=== PATIENT | male | born 1945 | race Caucasian/White ===

== ENCOUNTER 2024-11-05 10:26 | Outpatient (AMB) | payer MEDICARE, SELFPAY ==
--- NOTE | 2024-11-05 10:34 | HO.SPINEOV ---
Vital Signs 11/05/24 10:42 Height 5 ft 6 in Weight 193 lb BMI 31.1 Intake Visit Reasons: spinal stenosis Intake Note: Mr. Chowdhury is here today c/o back pain MRI done at [place]. Research Professor Required: No Allergies No Known Allergies Allergy (Verified 11/05/24 10:42) Physical Exam Vital Signs: BMI result Body Mass Index 31.1 Assessment & Plan Assessment & Plan (1) Spinal stenosis, lumbar region with neurogenic claudication: Code(s): M48.062 - Spinal stenosis, lumbar region with neurogenic claudication Category: Medical Plan Dear Dr. Cruz, Thank you for referring Alf to our office today. He is a pleasant 78-year-old male who comes in today with a chief complaint of pain with ambulation. He recently underwent L5-S1 interlaminar injections with our colleagues at [facility] and obtained excellent relief of his pain. Unfortunately with the injection wore off he returned to his pre-injection level of discomfort. Alf reports that he has been having pains with ambulation for about 8 years. He feels this has worsened over the course of the last 1-2 years. He reports little to no back pain, but states that when he walks anymore than about a block he starts getting severe cramping/shooting pain from his posterior buttocks into the posterior lateral thighs. In addition to this he reports some hypoesthesia over the right lateral thigh. He reports that when ambulating outside of the home he typically needs to utilize his cane for support, or holds onto a shopping cart to get around the grocery store / department store. He has attempted zzdo-fuy-zaeqhwb medications in prescription medications to help alleviate this pain as documented in his incoming referral. These have been only modestly helpful. He has attempted skin care therapist in an effort to help mitigate his pain, without significant relief. PMH: AFib on Eliquis, high blood pressure, type 2 diabetes (last A1C 8.4), GERD, BPH, history of bilateral hip replacement, history of carpal tunnel syndrome, history multiple MOHS procedures done on his face by [facility]. Social hx: The patient does not smoke, reports no substance use. Medications: Diltiazem, lisinopril, chlorthalidone, Eliquis, glipizide, metformin, Toujeo, doxazosin, finasteride, atorvastatin, omeprazole, fish oil, cinnamon. Allergies: No known drug allergies. Physical exam: The patient has 5/5 strength in his upper and lower extremities. He ambulates well and rises from a seated position without assistance. He has some sensational deficits over the right lateral thigh. His sensation is otherwise intact. He has 3+ hyperreflexia in his bilateral patella. His reflexes are 2+ normal elsewhere. His gait is non spastic and nonantalgic. (-) bilateral straight leg raise, (-) clonus, (-) Jackson's. Imaging review: MRI of the lumbar spine completed at [place] ([facility], 1944) shows diffuse spondylosis of the lumbar spine, with severe central canal and bilateral foraminal stenosis at L3-4, L4-5 (worse on the right at both levels). There is a synovial cyst at L4-5 compressing on the thecal sac and the first 1/4th of the foramen. There is severe right-sided foraminal stenosis at L5-S1. Impression: Alf is a pleasant 78-year-old male who comes in today with a chief complaint of 8 years of pain with ambulation. He primarily reports leg pain with ambulation and denies much low back pain. He has undergone injections with our colleagues in [facility] with excellent relief of his pain. I believe he likely had some secondary relief at L3-4, L4-5 from the interlaminar injection at L5-S1. The L5-S1 space does match his dermatomal distribution of pain, and there is severe right-sided foraminal stenosis at this level. It sounds like the patient is suffering from classic spinal stenosis with neurogenic claudication. We discussed the possibility of surgery as an avenue to treat his problem. I believe he would likely need lumbar decompression from L3-S1. Arguably the L5-S1 segment could be avoided but the nerve may remain symptomatic if the foraminal stenosis is not addressed. Unfortunately, Alf is not currently a candidate for this surgery with his A1c at 8.4. He will need to have his A1c rechecked at his next primary care appointment. We need this under an 8 to proceed with surgery. I will follow up with him in clinic after he has his subsequent A1c completed. Thank you for allowing us to care for your patient. The total time spent with this visit with this patient was 45 minutes reviewing history, physical exam, MRI imaging review, and implementation of treatment plan or further diagnostic testing Augustin Torres MD,PhD [facility] Coding Level of Care Code New Pt Level 4 (57521) Diagnoses Spinal stenosis, lumbar region with neurogenic claudication M48.062
[2024-11-05 10:42] VITALS: BMI 31.1
--- OUTSIDE RECORDS SUMMARY | 2024-11-05 12:14 | XMS_ITS | Encounter Summary ---
Author Organization [facility], Address [address] [place] [address] Phone Care Team Providers Care Senior Manufacturing Supervisor Name Role Phone Rob Elder MD Primary Care Provider [phone] Encounter Details Date Type Department Care Team (Late st Contact Info) Description 02/09/2022 Office Communication [facility], [address] [place] [phone] Willian Araya MD [address] [place] [phone] Social History Tobacco Use Types Packs/Day Years Used Date Smoking Tobacco: Former Cigarettes Alcohol Use Standard Drinks/Week Comments Not Currently 0 (1 standard drink = 0.6 oz pur e alcohol) Sex and Gender Information Value Date Recorded Sex Assigned at Not on file Legal Sex Male 4:00 PM EST Gender Identity Not on file Sexual Orientation Not on file documented as of this encounter Plan of Treatment Not on file documented as of this encounter Visit Diagnoses Not on filedocumented in this encounter Care Teams Senior Manufacturing Supervisor Relationship Specialty Start Date End Date Rob Elder MD [address] [place] PCP - General Internal Medicine 07/28/21 documented as of this encounter
--- OUTSIDE RECORDS SUMMARY | 2024-11-05 12:14 | XMS_ITS | Clinical Summary ---
Author Organization [facility], Address [address] [facility] [address] [place] [address] Phone Care Team Providers Care Cook Mess Name Role Phone Rob Elder MD Primary Care Provider [phone] Allergies Active Allergy Reactions Criticality Noted Date Comments Amlodipine Swelling 10/06/2021 Medications atorvastatin (LIPITOR) 40 MG tablet Take 40 mg by mouth 1 (one) time each day 08/29/2021 Active dilTIAZem CD (CARDIZEM CD) 240 MG 24 hr capsule Take 240 mg by mouth 1 (one) time each day 10/04/2021 Active chlorthalidone 25 MG tablet Take 25 mg by mouth 1 (one) time each day 07/22/2021 Active doxazosin (CARDURA) 4 MG tablet Take 4 mg by mouth 1 (one) time each day 08/11/2021 Active finasteride (PROSCAR) 5 MG tablet Take 5 mg by mouth 1 (one) time each day 08/11/2021 Active glipiZIDE (GLUCOTROL) 5 MG tablet Take 5 mg by mouth in the morning and 5 mg in the evening. 07/21/2021 Active Tresiba FlexTouch 100 UNIT/ML injection Inject 35 Units under the skin 1 (one) time each day 09/18/2021 Active lisinopril 40 MG tablet Take 40 mg by mouth 1 (one) time each day 09/17/2021 Active metFORMIN XR (GLUCOPHAGE-XR) 500 MG 24 hr tablet Take 2,000 mg by mouth 1 (one) time each day 08/17/2021 Active metoprolol tartrate 25 MG tablet TAKE 1 TABLET BY MOUTH TWICE DAILY HOLD FOR WHEN HEART RATE IS LESS THAN 60 OR WHEN FEELING DIZZY 08/29/2021 Active omeprazole (PriLOSEC) [address] capsule Take 20 mg by mouth 1 (one) time each day 08/29/2021 Active cinnamon 500 MG capsule Take 500 mg by mouth 1 (one) time each day Active apixaban (Eliquis) 5 MG tablet Take 5 mg by mouth in the morning and 5 mg in the evening. Active [place]-3 Fatty Acids (Fish Oil) 1000 MG capsule delayed-release Take by mouth Active Dulaglutide (Trulicity) 0.75 MG/0.5ML solution pen-injector Inject under the skin Active Active Problems Problem Noted Date Diagnosed Date Stage 3a chronic kidney disease 05/25/2022 Chronic kidney disease 10/06/2021 Type 2 diabetes mellitus wit h other diabetic kidney complication 10/06/2021 Essential (primary) hypertension 10/06/2021 Renal disorder due to type 2 diabetes mellitus 0 10/06/2021 Microalbuminuria due to type 2 diabetes mellitus 10/06/2021 Immunizations Name Administration Dates Next Due Influenza (IM) Preservative Free 021,04/02/2019,04/17/2018,05/06/2017 ,04/17/2015 Pfizer SARS-COV-2 05/22/2021 Social History Tobacco Use Types Packs/Day Years Used Date Smoking Tobacco: Former Cigarettes Alcohol Use Standard Drinks/Week Comments Not Currently 0 (1 standard drink = 0.6 oz pur e alcohol) Sex and Gender Information Value Date Recorded Sex Assigned at Not on file Legal Sex Male 4:00 PM EST Gender Identity Not on file Sexual Orientation Not on file Plan of Treatment Health Maintenance Due Date Last Done Comments Pneumococcal Vaccine: 65+ Years (1 of 2 - PCV) 1951 Diabetes: Ophthalmology Exam 10/06/2021 Diabetes: Pedal Pulse Checked 10/06/2021 Diabetes: Sensory Foot Exam 10/06/2021 Diabetes: Visual Foot Exam 10/06/2021 Diabetes: Hemoglobin A1C 03/02/2023 023, 07/13/2022, 03/16/2022 Influenza Vaccine (Season Ended) 2025 04/22/2021, 04/02/2019, 04/17/2018, Additional history exists Hepatitis B Vaccine Aged Out No longe r eligible based on patient's age to complete this topic Procedures Procedure Name Priority Date/Time Associated Diagnosis Comments HEMOGLOBIN A1C Routine 11/30/2022 8:14 AM EDT Type 2 diabetes mellitus with other diabetic kidney complication (HCC) from Last 3 Months or Most Recently Relevant to Health Maintenance Results * (ABNORMAL) Hemoglobin A1c (11/30/2022 8:14 AM EDT) Hemoglobin A1C 7.4(H) (4.0-5.6) % [facility] Comment: MONITORING: In known diabetic patients, hemoglobin A1c targets should be discussed with health care provider. DIAGNOSTIC USE: ??The [place] Diabetes Association (ADA) and the World Health Organization (WHO) recommend the use of HbA1c to diagnose diabetes using a threshold of 6.5%. Patients who have an HbA1c between 5.7% and 6.4% are considered at increased risk for developing diabetes in the future. CAUTION: Falsely low HbA1c results may be observed in patients with hemolytic anemia, homozygous forms of abnormal hemoglobin (e.g. SS, CC, SC), , recent blood loss or hemoglobin F greater than 7%. Fructosamine may be used as an alternate test in these cases. REFERENCE: ADA: Standards of Medical Care in Diabetes 2020, The Journal of Clinical and Applied Research and Education Volume 43, Supplement 1 Testing performed or reported by [facility], a Service of [facility], [address] [place] [address] Fahad Alejandre MD, Senior Portfolio Analyst [facility]# [id number] Blood (Blood, Venous) 11/30/2022 8:14 AM EDT 11/30/2022 9:16 AM EDT us Matthew [facility] LAB BLOOD ORDERABLES Final Re sult [facility] from Last 3 Months or Most Recently Relevant to Health Maintenance Insurance [facility] Care Teams Cook Mess Relationship Specialty Start Date End Date Rob Elder MD [address] [place] PCP - General Internal Medicine 07/28/21
--- OUTSIDE RECORDS SUMMARY | 2024-11-05 12:14 | XMS_ITS | Encounter Summary ---
Author Organization [facility], Address [address] [place] [address] Phone Care Team Providers Care Health Information Management Director Name Role Phone Rob Elder MD Primary Care Provider [phone] Encounter Details Date Type Department Care Team (Late st Contact Info) Description 05/28/2024 Office Communication [facility], [facility] [address] [place] [phone] Willian Araya MD [address] [facility] [address] [place] [phone] Social History Tobacco Use Types Packs/Day Years [...] on filedocumented in this encounter Care Teams Health Information Management Director Relationship Specialty Start Date End Date Rob Elder MD [address] [place], [place] PCP - General Internal Medicine 07/28/21 documented as of this encounter
== END 2024-11-05 11:15 | disposition home or self-care (01) ==
LOC: HO.HNS 10:27
PROVIDERS: PCP Internal Medicine; Referring Provider Physical Medicine & Rehabilitation; Visit Provider Physician Assistant
DX: M48.062 Spinal stenosis, lumbar region with neurogenic claudication (principal)
CPT/HCPCS: 99204

== ENCOUNTER → 2024-11-05 10:26 | Outpatient (BNVA) | payer MEDICARE, SELFPAY | PROVIDERS: PCP Internal Medicine; Referring Provider Physical Medicine & Rehabilitation; Visit Provider Physician Assistant | DX: M48.062 Spinal stenosis, lumbar region with neurogenic claudication (principal) | CPT/HCPCS: 99202 ==

== ENCOUNTER 2024-11-29 09:10 | Outpatient (AMB) | payer MEDICARE, SELFPAY ==
--- NOTE | 2024-11-29 09:30 | A.SPINEOV_ITS ---
Intake Visit Reasons: follow up after A1C Intake Note: Mr. Chowdhury is here today to f/u after A1C. Patient Account Representative Required: No Allergies No Known Allergies Allergy (Verified 11/05/24 10:42) Assessment & Plan Assessment & Plan (1) Spinal stenosis, lumbar region with neurogenic claudication: Code(s): M48.062 - Spinal stenosis, lumbar region with neurogenic claudication Category: Medical Plan Alf is a pleasant 79 year old male suffering from spinal stenosis with neurogenic claudication. He comes in today for a follow-up appointment after having a recent A1c completed showing a hemoglobin A1c of 7.9. He is highly motivated for surgery, and states that he can not keep living the way that he currently is. His pain with ambulation is worsening to the point where he can not do any yard work and can complete basic activities of daily living around the home. To recap he had previously undergone injections with our colleagues in [facility] with excellent relief of his pain, but the pain now returns within a week or so after injections. We discussed the possibility of surgery as an avenue to treat his problem during his initial office visit. We again discussed the possibility of lumbar decompression today. The patient was given risk and benefits of surgery including but not limited to infection, hematoma, nerve injury, durotomy, weakness, bowel/bladder injury, persistent pain, and pseudoarthosis or instrumentation failure if they are undergoing lumbar fusion. In addition to this for males undergoing anterior lumbar fusion there is a low risk of retrograde ejaculation. We also discussed the option to continue with conservative treatment and patient wishes to proceed with surgery. They are aware they should stop NSAIDs 7 days prior to surgery. All questions were answered to the best of our ability. If there is anything about this patients medical history that we have overlooked or concerns you have about us proceeding with surgery we would appreciate any input you can offer. I will review his imaging and clinical presentation with the attending neurosurgeon Dr. Torres and call the patient back later next week with the surgical decision. If Dr. Torres is willing to offer the patient surgery, he will need to stop his Eliquis and Metformin 2 days before surgery. He will need to stop his fish oil and NSAIDs at least 1 week before surgery, Augustin Torres MD,PhD [facility] Coding Level of Care Code Est Pt Level 2 (76811) Diagnoses Spinal stenosis, lumbar region with neurogenic claudication M48.062
--- OUTSIDE RECORDS SUMMARY | 2024-11-29 09:54 | XMS_ITS | Encounter Summary ---
Author Organization [facility], Address [address] [place] [address] Phone Care Team Providers Care Traveling Freight Agent Name Role Phone Rob Elder MD Primary Care Provider [phone] Encounter Details Date Type Department Care Team (Late st Contact Info) Description 05/28/2024 Office Communication [facility], [facility] [address] [place] [phone] Willian Araya MD [address] [place] [phone] Social History Tobacco Use Types Packs/Day Years [...] on filedocumented in this encounter Care Teams Traveling Freight Agent Relationship Specialty Start Date End Date Rob Elder MD [address] [place], [place] PCP - General Internal Medicine 07/28/21 documented as of this encounter
--- OUTSIDE RECORDS SUMMARY | 2024-11-29 09:54 | XMS_ITS | Encounter Summary ---
Author Organization [facility], Address [address] [place] [address] Phone Care Team Providers Care Bellman Driver Name Role Phone Rob Elder MD Primary Care Provider [phone] Encounter Details Date Type Department Care Team (Late st Contact Info) Description 02/09/2022 Office Communication [facility], [address] [facility] [phone] Willian Araya MD [address] [place] [phone] Social History Tobacco Use Types Packs/Day Years [...] on filedocumented in this encounter Care Teams Bellman Driver Relationship Specialty Start Date End Date Rob Elder MD [address] [place] PCP - General Internal Medicine 07/28/21 documented as of this encounter
--- OUTSIDE RECORDS SUMMARY | 2024-11-29 09:54 | XMS_ITS | Clinical Summary ---
Author Organization [facility], Address [address] [facility] [address] [place] [address] Phone Care Team Providers Care Specialty Foods Cook Name Role Phone Rob Elder MD Primary Care Provider Allergies Active Allergy Reactions Criticality Noted Date [...] and 5 mg in the evening. Active [place]-3 Fatty Acids (Fish Oil) 1000 MG capsule [...] to type 2 diabetes mellitus 10/06/2021 Immunizations Immunization Administration Dates Next Due Influenza (IM) Preservative [...] Due Date Last Done Comments Pneumococcal Vaccine: 50+ Years (1 of 2 - PCV) 11/10/1964 Diabetes: Ophthalmology Exam 10/06/2021 Diabetes: Pedal Pulse [...] AM EDT) Hemoglobin A1C 7.4(H) (4.0-5.6) % [facility] Comment: MONITORING: In known diabetic patients, hemoglobin A1c targets should be discussed with health care provider. DIAGNOSTIC USE: ??The [place] Diabetes Association (ADA) and the World Health [...] Supplement 1 Testing performed or reported by [facility], a Service of [facility], [address] [place] [address] Fahad Alejandre MD, Particle Board Supervisor [facility]# [id number] Blood (Blood, Venous) 11/30/2022 8:14 AM EDT 11/30/2022 9:16 AM EDT us Matthew [facility] LAB BLOOD ORDERABLES Final Re sult [facility] from Last 3 Months or Most Recently Relevant to Health Maintenance Insurance [facility] Care Teams Specialty Foods Cook Relationship Specialty Start Date End Date Rob Elder MD [address] [place] PCP - General Internal Medicine 07/28/21
== END 2024-11-29 10:00 | disposition home or self-care (01) ==
LOC: HO.HNS 09:11
PROVIDERS: PCP Internal Medicine; Visit Provider Physician Assistant
DX: M48.062 Spinal stenosis, lumbar region with neurogenic claudication (principal)
CPT/HCPCS: 99212

== ENCOUNTER → 2024-11-29 09:10 | Outpatient (BNVA) | payer MEDICARE, SELFPAY | PROVIDERS: PCP Internal Medicine; Visit Provider Physician Assistant | DX: M48.062 Spinal stenosis, lumbar region with neurogenic claudication (principal) | CPT/HCPCS: 99212 ==

== ENCOUNTER 2024-12-04 16:19 | Outpatient (REF) | payer MEDICARE, SELFPAY ==
--- OUTSIDE RECORDS SUMMARY | 2024-12-04 17:05 | XMS_ITS | Encounter Summary ---
Author Organization [facility], Address [address] [place] [address] Phone Care Team Providers Care Public Area Supervisor Name Role Phone Rob Elder MD Primary Care Provider [phone] Encounter Details Date Type Department Care Team (Late st Contact Info) Description 05/28/2024 Office Communication [facility], [facility] [address] [place] [phone] Willian Araya MD [address] [place] [phone] Social History Tobacco Use Types Packs/Day Years [...] on filedocumented in this encounter Care Teams Public Area Supervisor Relationship Specialty Start Date End Date Rob Elder MD [address] [place], [place] PCP - General Internal Medicine 07/28/21 documented as of this encounter
--- OUTSIDE RECORDS SUMMARY | 2024-12-04 17:05 | XMS_ITS | Encounter Summary ---
Author Organization [facility], Address [address] [place] [address] Phone Care Team Providers Care Site Acquisition Specialist Name Role Phone Rob Elder MD Primary Care Provider [phone] Encounter Details Date Type Department Care Team (Late st Contact Info) Description 02/09/2022 Office Communication [facility], [address] [place] [phone] Willian Araya MD [address] [facility] [address] [place] [phone] Social History Tobacco Use Types Packs/Day Years [...] on filedocumented in this encounter Care Teams Site Acquisition Specialist Relationship Specialty Start Date End Date Rob Elder MD [address] [place] PCP - General Internal Medicine 07/28/21 documented as of this encounter
--- OUTSIDE RECORDS SUMMARY | 2024-12-04 17:05 | XMS_ITS | Clinical Summary ---
Author Organization [facility], Address [address] [place] [address] [address] [place] [address] Phone Care Team Providers Care Curriculum Coordinator Name Role Phone Rob Elder MD Primary Care Provider [phone] Allergies Active Allergy Reactions Criticality Noted Date [...] and 5 mg in the evening. Active [place]-3 Fatty Acids (Fish Oil) 1000 MG capsule [...] AM EDT) Hemoglobin A1C 7.4(H) (4.0-5.6) % [facility] Comment: MONITORING: In known diabetic patients, hemoglobin A1c targets should be discussed with health care provider. DIAGNOSTIC USE: ??The [place] Diabetes Association (ADA) and the World Health [...] Supplement 1 Testing performed or reported by [facility], a Service of [facility], [address] [place] [address] Fahad Alejandre MD, Manufacturing Controller [facility]# [id number] Blood (Blood, Venous) 11/30/2022 8:14 AM EDT 11/30/2022 9:16 AM EDT us Matthew [facility] LAB BLOOD ORDERABLES Final Re sult [facility] from Last 3 Months or Most Recently Relevant to Health Maintenance Insurance [facility] Care Teams Curriculum Coordinator Relationship Specialty Start Date End Date Rob Elder MD [address] [place] PCP - General Internal Medicine 07/28/21
== END 2024-12-04 16:20 | disposition home or self-care (01) ==
LOC: HO.HOSX 16:19
PROVIDERS: Visit Provider Physician Assistant
DX: Z13.89 Encounter for screening for other disorder (principal)

== ENCOUNTER 2024-12-26 10:21 | Outpatient (REF) | payer MEDICARE, SELFPAY ==
--- NOTE | ~2024-12-26 | XR_ITS ---
EXAMINATION: X-ray lumbar spine CLINICAL INFORMATION: Spinal stenosis, lumbar region with neurogenic claudication. TECHNIQUE: AP, lateral views in neutral position and lateral views during flexion and extension. COMPARISON: None FINDINGS: Multilevel marginal osteophyte formation and syndesmophyte formation throughout the axial skeleton. Endplate sclerosis decreased intervertebral disc height at L3-4, L4-5 and L5-S1 level. Grade 1 retrolisthesis at L3-4 in the mitral position which contains during flexion and extension position. Grade 1 retrolisthesis at L2-3 which persists during flexion and extension position. Mild wedge-shaped compression deformities representing 20% volume loss in the vertebral bodies of the lower thoracic and upper lumbar spine. No acute cortical disruption. Vascular calcification, abdominal aorta and iliac arteries. No lytic or blastic lesions. XR/XR lumbar spine 4V min IMPRESSION: Multilevel thoracolumbar spondylosis resulting in grade 1 retrolisthesis L3-4 and L2-3 without gross instability. Electronically signed by: Ronald Horta MD 12/26/2024 03:33 PM EDT
--- OUTSIDE RECORDS SUMMARY | 2024-12-27 10:43 | XMS_ITS | Clinical Summary ---
Author Organization [facility], Address [address] [facility] [facility] [place] [address] Phone Care Team Providers Care Agronomy Specialist Name Role Phone Rob Elder MD [...] and 5 mg in the evening. Active [place]-3 Fatty Acids (Fish Oil) 1000 MG capsule [...] AM EDT) Hemoglobin A1C 7.4(H) (4.0-5.6) % [facility] Comment: MONITORING: In known diabetic patients, hemoglobin A1c targets should be discussed with health care provider. DIAGNOSTIC USE: ??The [place] Diabetes Association (ADA) and the World Health [...] Supplement 1 Testing performed or reported by [facility], a Service of [facility], [address] [place] [address] Fahad Alejandre MD, Thread Trimmer [facility]# [id number] Blood specimen (specimen) Venous blood / Unknown 11/30/2022 8:14 AM EDT 11/30/2022 9:16 AM EDT us Matthew PUGH LAB BLOOD ORDERABLES Final Re sult [facility] from Last 3 Months or Most Recently Relevant to Health Maintenance Insurance [facility] Care Teams Agronomy Specialist Relationship Specialty Start Date End Date Rob Elder MD [address] [place], [place] PCP - General Internal Medicine 07/28/21
== END 2024-12-26 10:22 | disposition home or self-care (01) ==
LOC: HO.HOSX 10:21
PROVIDERS: Visit Provider Neurological Surgery
DX: M48.062 Spinal stenosis, lumbar region with neurogenic claudication (principal)
CPT/HCPCS: 72110; 99212

== ENCOUNTER 2024-12-26 13:18 | Outpatient (AMB) | payer MEDICARE, SELFPAY ==
--- NOTE | 2024-12-26 13:38 | HO.SPINEOV ---
Intake Visit Reasons: f/up with xrays Intake Note: Mr. Reaves is here to discuss the results of his X-rays. Fisher Pound Net Or Trap Required: No Allergies No Known Allergies Allergy (Verified 11/05/24 10:42) Assessment & Plan Assessment & Plan (1) Spinal stenosis, lumbar region with neurogenic claudication: Code(s): M48.062 - Spinal stenosis, lumbar region with neurogenic claudication Category: Medical Plan: Dear colleague, On 12/26/2024 I saw for follow-up Memo Frost. He is an 79-year-old male previously seen by Augustin Christiansen for lumbar stenosis with neurogenic claudication. He was thought to be a good surgical candidate and he is coming to see me for preop evaluation. The MRI shows severe L4-5 central stenosis due to a right sided synovial cyst measuring 5 x 4 mm causing right subarticular recess stenosis in addition to degenerative changes and epidural lipomatosis. We added dynamic lumbar x-rays which showed no instability. Therefore I offered him a L4-5 laminotomy with synovial cyst resection , right-sided approach on 01/17/2025. The procedure possible complications were reiterated. We will also discuss the expected postoperative course. I spent 25 minutes in his consult answering questions reviewing imaging. Thank you for allowing me take care of your patient. Dakotah Torres MD, PhD Spine Fellowship Trained Neurosurgeon Director, [facility] Orders: Orders XR lumbar spine 4V min Today M48.062 - Spinal stenosis, lumbar region with neurogenic claudication Coding Level of Care Code Est Pt Level 3 (38138) Diagnoses Spinal stenosis, lumbar region with neurogenic claudication M48.062
--- OUTSIDE RECORDS SUMMARY | 2024-12-26 14:09 | XMS_ITS | Clinical Summary ---
Author Organization [facility], Address [address] [address] [address] [place] [address] Phone Care Team Providers Care Tire Specialist Name Role Phone Rob Elder MD Primary Care Provider [phone] Allergies Active Allergy Reactions Criticality Noted Date [...] and 5 mg in the evening. Active [place]-3 Fatty Acids (Fish Oil) 1000 MG capsule [...] AM EDT) Hemoglobin A1C 7.4(H) (4.0-5.6) % [facility] Comment: MONITORING: In known diabetic patients, hemoglobin A1c targets should be discussed with health care provider. DIAGNOSTIC USE: ??The [place] Diabetes Association (ADA) and the World Health [...] Supplement 1 Testing performed or reported by [facility], a Service of [facility], [address] [place] [address] Fahad Alejandre MD, Paving Stone Installer [facility]# [id number] Blood specimen (specimen) Venous blood / Unknown 11/30/2022 8:14 AM EDT 11/30/2022 9:16 AM EDT us Matthew PUGH LAB BLOOD ORDERABLES Final Re sult [facility] from Last 3 Months or Most Recently Relevant to Health Maintenance Insurance [facility] Care Teams Tire Specialist Relationship Specialty Start Date End Date Rob Elder MD [address] [place], [place] PCP - General Internal Medicine 07/28/21
== END 2024-12-26 14:22 | disposition home or self-care (01) ==
LOC: HO.HNS 13:18
PROVIDERS: PCP Internal Medicine; Visit Provider Neurological Surgery
DX: M48.062 Spinal stenosis, lumbar region with neurogenic claudication (principal)
CPT/HCPCS: 99213

== ENCOUNTER → 2024-12-26 13:22 | Outpatient (BNV) | payer MEDICARE, SELFPAY | PROVIDERS: Visit Provider Radiology Diagnostic Radiology | DX: M47.815 Spondylosis without myelopathy or radiculopathy, thoracolumbar region (principal) | CPT/HCPCS: 72110 ==

== ENCOUNTER 2025-01-17 08:55 | Day surgery (SDC) | payer MEDICARE, SELFPAY ==
[2025-01-08 12:04] VITALS: BP 170/81; PULSE 59; RESP 16; O2SAT 96; BMI 32.1
--- OUTSIDE RECORDS SUMMARY | 2025-01-08 12:45 | XMS_ITS | Clinical Summary ---
Author Organization [facility], Address [address] [facility] [place] [address] Phone Care Team Providers Care Cotton Farmworker Name Role Phone Rob Elder MD Primary Care Provider [phone] Allergies Active Allergy Reactions Criticality Noted Date [...] and 5 mg in the evening. Active [place]-3 Fatty Acids (Fish Oil) 1000 MG capsule [...] AM EDT) Hemoglobin A1C 7.4(H) (4.0-5.6) % [facility] Comment: MONITORING: In known diabetic patients, hemoglobin A1c targets should be discussed with health care provider. DIAGNOSTIC USE: ??The [place] Diabetes Association (ADA) and the World Health [...] Supplement 1 Testing performed or reported by [facility], a Service of [facility], [address] [place] [address] Fahad Alejandre MD, Automatic Teller Machine Servicer [facility]# [id number] Blood specimen (specimen) Venous blood / Unknown 11/30/2022 8:14 AM EDT 11/30/2022 9:16 AM EDT us Matthew PUGH LAB BLOOD ORDERABLES Final Re sult [facility] from Last 3 Months or Most Recently Relevant to Health Maintenance Insurance [facility] Care Teams Cotton Farmworker Relationship Specialty Start Date End Date Rob Elder MD [address] [place], [place] PCP - General Internal Medicine 07/28/21
[2025-01-08 13:45] LABS: Hematocrit 39.5 % (42.0-52.0); Hemoglobin 13.5 g/dl (14.0-18.0); Mean Corpuscular HGB Conc 34.2 g/dl (31.0-36.0); Mean Corpuscular Hemoglobin 31.5 pg (27.0-33.0); Mean Corpuscular Volume 92.3 fL (80.0-98.0); Mean Platelet Volume 10.5 fL (9.4-12.4); Platelet Count 277 X10*3/uL (160-400); Red Blood Count 4.28 X10*6/uL (4.60-5.80); Red Cell Distribution Width 12.4 % (11.0-16.0)
--- NOTE | ~2025-01-17 | FL_ITS ---
EXAMINATION: XR FLUOROSCOPY WITH IMAGES CLINICAL INFORMATION: L4-5 laminotomy with synovial cyst resection. COMPARISON: Radiographs lumbar spine 12/18/2024. TECHNIQUE: Fluoroscopy provided to: Dr. Torres Fluoroscopy time: 0.1 minutes DAP: 1.04 Gycm2 Images: 1 FINDINGS: Solitary spot image obtained of the lumbar spine during L4-5 laminotomy. Refer to the full operative report for detail. FL/FL guidance in OR IMPRESSION: Fluoroscopic guidance. Electronically signed by: Torrey Rosas MD 01/17/2025 12:34 PM EDT
[2025-01-17 09:19] VITALS: BP 162/60; PULSE 60; RESP 14; TEMP 36.4; O2SAT 98; BMI 31.3
[2025-01-17] MEDS: Gabapentin 300 MG CAPSULE PO (09:40)
[2025-01-17] MEDS: Lactated Ringers 1,000 ML 100 ML IVCONT ×2 (09:40)
[2025-01-17] MEDS: methocarbamoL 750 MG TABLET PO (09:40)
--- NOTE | 2025-01-17 09:53 | MHC.SHP ---
Pre-Procedural Eval Section A - 24 Hr Update-Section A only Date of Service: 01/17/25 The patient is an INPATIENT: No Section B - Complete if H&P > 30 days Chief Complaint: Spinal stenosis, lumbar region with neurogenic Details of Present Illness: Neurogenic claudication Allergies: Allergies Allergy/AdvReac Type Severity Reaction Status Date / Time No Known Allergies Allergy Verified 01/17/25 09:11 Review of Systems Sugical H&P ROS: Negative: Constitution, Cardiovascular, Respiratory, Neurological, Psychiatric, Hem-Onc, Allergic/Immunologic, Gastrointestinal, Genitourinary, Musculoskeletal, Integumentary, Endocrine and Eyes/Ears/Nose/Throat Exam Surgical H&P Exam: Normal: HEENT, Normal: Heart, Normal: Lungs, Normal: Extremities, Normal: Abdomen, Normal: Skin and Normal: Neurological (Awake, alert) Plan Diagnosis/Plan: Unchanged I have reviewed the history and physical and performed a pertinent physical examination on my patient. No changes have occurred unless specified. L4-5 laminotomy for synovial cyst resection , right-side Time Spent With Patient Time: Total time managing care of this patient today ____ minutes.
--- NOTE | 2025-01-17 10:22 | HO.ANESPROP2 ---
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 Has seen renal in past, but stable and prn f/u only PAF: Eliquis, instructed to hold by surgeon. Follows [facility] cardiology yearly. Last office visit 07/2024, stable with only 2-4 occurrences of PAF yearly. YESENIA: mild, no CPAP DM: FBS ~ 95-115 - Has glucose monitor. Reports some low alerts overnight (<69) - instructed clear liquid to tx, will hold metformin 01/16 and 01/17, Toujeo 20 units DOS) GERD: ppi controls ETOH: 1-2 drinks daily Bilat hearing aides PMFSH Active Problems Active Problems: All Active Problems Spinal stenosis, lumbar region with neurogenic claudication (Acute) Past Medical History Medical History (Updated 01/08/25 @ 12:42 by Karina Ayoub, EDGARD) Hx of skin cancer, basal cell Spinal stenosis CKD (chronic kidney disease) GERD (gastroesophageal reflux disease) TUOLUMNE (hard of hearing) PAF (paroxysmal atrial fibrillation) YESENIA (obstructive sleep apnea) Diabetes HTN (hypertension) HLD (hyperlipidemia) History of Mohs micrographic surgery for skin cancer Family History Family history of problems with anesthesia: No Surgical History Surgical History History of surgery on right wrist History of carpal tunnel release of both wrists Hx of colonoscopy Hx of bilateral hip replacements (2018) History of Problems with Anesthesia: No Social History Social History (Updated 01/08/25 @ 12:51 by Karina Ayoub RN) Household Members: Spouse Housing: House Use of substances other than those prescribed or required for medical reasons: No Have you been hit, kicked, punched, or otherwise hurt by someone within the past year? If so, by whom?: No Are you DNR?: No Advance Directives: No (has one will bring DOS) Advance Directives Information Provided: Yes Advance Directives on File: No Meds Allergies Allergy/AdvReac Type Severity Reaction Status Date / Time No Known Allergies Allergy Verified 01/17/25 09:11 Home Medications ?Medication ?Instructions ?Recorded ?Confirmed ?Last Taken ?Type apixaban 5 mg tablet (Eliquis) 5 mg PO BID 01/07/25 01/07/25 01/13/25 History atorvastatin 40 mg tablet 40 mg PO DAILY 01/07/25 01/07/25 Unknown History chlorthalidone 25 mg tablet 25 mg PO DAILY 01/07/25 01/07/25 Unknown History diltiazem HCl 240 mg 240 mg PO DAILY 01/07/25 01/17/25 01/17/25 History capsule,extended release 24 hr doxazosin 4 mg tablet 4 mg PO DAILY 01/07/25 01/07/25 Unknown History finasteride 5 mg tablet 5 mg PO DAILY 01/07/25 01/07/25 Unknown History insulin glargine U-300 conc 300 42 unit subcut DAILY 01/07/25 01/08/25 Unknown History unit/mL (3 mL) subcutaneous pen (Toutriptapo Max U-300 SoloStar) lisinopril 40 mg tablet 40 mg PO DAILY 01/07/25 01/07/25 Unknown History metformin 500 mg tablet,extended 2,000 mg PO DAILY 01/07/25 01/07/25 Unknown History release 24 hr omeprazole 20 mg capsule,delayed 20 mg PO DAILY 01/07/25 01/17/25 01/17/25 History release Exam Height,Weight and Vital Signs: Height 5 ft 6 in Weight 90.265 kg Last Vital Signs Pulse 59 01/08/25 12:04 Resp 16 01/08/25 12:04 BP 170/81 H 01/08/25 12:04 Pulse Ox 96 01/08/25 12:04 O2 Del Method Room Air 01/08/25 12:04 Pertinent Lab Results Pertinent Lab Results: Lab Results 01/08/25 Range/Units 13:03 WBC 9.0 (4.8-10.8) X10*3/uL RBC 4.28 L (4.60-5.80) X10*6/uL Hgb 13.5 L (14.0-18.0) g/dl Hct 39.5 L (42.0-52.0) % MCV 92.3 (80.0-98.0) fL MCH 31.5 (27.0-33.0) pg MCHC 34.2 (31.0-36.0) g/dl RDW 12.4 (11.0-16.0) % Plt Count 277 (160-400) X10*3/uL MPV 10.5 (9.4-12.4) fL Absolute Nucleated RBC 0.000 (0.0-0.012) X10*3/uL Nucleated RBC % (auto) 0.0 (0.0-0.2) /100WBC BMP from outside facility 11/2024 [place] Narrative Narrative: ECG 12-Lead ? 08:19:02 Please click on pdf link to open report ? Signed By: Herbert Marion MD ? ECG 12-Lead ? 08:19:02 Ventricular Rate: 63 BPM Atrial Rate: 63 BPM P-R Interval: 196 ms QRS Duration: 102 ms Q-T Interval: 412 ms QTC Calculation(Bazett): 421 ms P Mott: 27 degrees R Mott: -41 degrees T Mott: 59 degrees Normal sinus rhythm Left axis deviation Moderate voltage criteria for LVH, may be normal variant Abnormal ECG When compared with ECG of 26-May-2023 07:55, No significant change was found Confirmed by HERBERT MARION MD ([id number]) on 07/05/2024 9:45:12 AM [place]: HERBERT MARION MD ? Signed By: Herbert Marion MD EchoEchocardiogram - Complete ? 15:16:44 Summary The left ventricular size is normal. There is moderate left ventricular hypertrophy. LV systolic function appears preserved. Ejection fraction is visually estimated at 50-55%. There is mild septal hypokinesis. Unable to assess diastolic function due to atrial fibrillation. The right ventricle is normal in size. Right ventricular systolic function appears preserved. The left atrium is mildly dilated. No significant valve dysfunction on available views. Unable to estimate CVP or PASP. Comparison No prior study available for comparison. Airway Mallampati Class: II TM Dist: >3cm Neck ROM: Full Partial: Upper Heart: RRR Lungs: Faint crackles LLL, clears with cough. Encouraged cough deep breathing preop Assessment and Plan Assessment Anesthesia Assessment: Anesthesia Plan Discussed and PAT Visit Final Anesthetic Review Family History of Problems with Anesthesia: No History of Problems with Anesthesia: No Documented by User: Ne Orozco DO 01/17/25 10:25 [facility] Past Medical History Medical History (Updated 01/08/25 @ 12:42 by Karina Ayoub, EDGARD) Hx of skin cancer, basal cell Spinal stenosis CKD (chronic kidney disease) GERD (gastroesophageal reflux disease) TUOLUMNE (hard of hearing) PAF (paroxysmal atrial fibrillation) YESENIA (obstructive sleep apnea) Diabetes HTN (hypertension) HLD (hyperlipidemia) History of Mohs micrographic surgery for skin cancer Family History Family history of problems with anesthesia: No Surgical History Surgical History History of surgery on right wrist History of carpal tunnel release of both wrists Hx of colonoscopy Hx of bilateral hip replacements (2018) History of Problems with Anesthesia: No Social History Social History (Updated 01/08/25 @ 12:51 by Karina Ayoub, RN) Household Members: Spouse Housing: House Use of substances other than those prescribed or required for medical reasons: No Have you been hit, kicked, punched, or otherwise hurt by someone within the past year? If so, by whom?: No Are you DNR?: No Advance Directives: No (has one will bring DOS) Advance Directives Information Provided: Yes Advance Directives on File: No Meds Allergies Allergy/AdvReac Type Severity Reaction Status Date / Time No Known Allergies Allergy Verified 01/17/25 09:11 Home Medications ?Medication ?Instructions ?Recorded ?Confirmed ?Last Taken ?Type apixaban 5 mg tablet (Eliquis) 5 mg PO BID 01/07/25 01/07/25 01/13/25 History atorvastatin 40 mg tablet 40 mg PO DAILY 01/07/25 01/07/25 Unknown History chlorthalidone 25 mg tablet 25 mg PO DAILY 01/07/25 01/07/25 Unknown History diltiazem HCl 240 mg 240 mg PO DAILY 01/07/25 01/17/25 01/17/25 History capsule,extended release 24 hr doxazosin 4 mg tablet 4 mg PO DAILY 01/07/25 01/07/25 Unknown History finasteride 5 mg tablet 5 mg PO DAILY 01/07/25 01/07/25 Unknown History insulin glargine U-300 conc 300 42 unit subcut DAILY 01/07/25 01/08/25 Unknown History unit/mL (3 mL) subcutaneous pen (Toujeo Max U-300 SoloStar) lisinopril 40 mg tablet 40 mg PO DAILY 01/07/25 01/07/25 Unknown History metformin 500 mg tablet,extended 2,000 mg PO DAILY 01/07/25 01/07/25 Unknown History release 24 hr omeprazole 20 mg capsule,delayed 20 mg PO DAILY 01/07/25 01/17/25 01/17/25 History release Exam Exam Date and Time: 01/17/25 1015 Height,Weight and Vital Signs: Height 5 ft 6 in Weight 90.265 kg Last Vital Signs Pulse 59 01/08/25 12:04 Resp 16 01/08/25 12:04 BP 170/81 H 01/08/25 12:04 Pulse Ox 96 01/08/25 12:04 O2 Del Method Room Air 01/08/25 12:04 Vital Signs Pulse Rate 59 01/08/25 12:04 Respiratory Rate 16 01/08/25 12:04 Blood Pressure 170/81 H 01/08/25 12:04 Pulse Oximetry 96 01/08/25 12:04 Oxygen Delivery Method Room Air 01/08/25 12:04 Temperature 97.6 F 01/17/25 09:19 Pulse Rate 60 01/17/25 09:19 Respiratory Rate 14 01/17/25 09:19 Blood Pressure 162/60 H 01/17/25 09:19 Pulse Oximetry 98 01/17/25 09:19 Oxygen Delivery Method Room Air 01/17/25 09:19 Airway Mallampati Class: II TM Dist: >3cm Neck ROM: Full Partial: Upper Heart: S1S2 Lungs: CTAB Assessment and Plan Assessment Anesthesia Assessment: Anesthesia Plan Discussed and Chart Reviewed Final Anesthetic Review Family History of Problems with Anesthesia: No History of Problems with Anesthesia: No NPO: Yes ASA Class: III Final Preanesthetic Review: No Changes in Pt Med Stat, Meds/Allgs Chart Reviewed, Consent Obtained/Reviewed and Anes Risks/Benef Reviewed Patient Risk: Intermediate Procedure Risk: Intermediate Anesthetic Plan Anesthetic Plan: GA and Agree w/ Assess. and Plan Disposition: Standard PACU
--- NOTE | 2025-01-17 10:55 | P.DS_ITS ---
DS: Providers Provider Date of Service: 01/17/25 Date of discharge: 01/17/25 Primary care physician: Min Brooks MD Admitting clinician: Dakotah Torres DS: Diagnosis Discharge Diagnosis (1) Spinal stenosis, lumbar region with neurogenic claudication: Status: Acute DS: Summary Time Attestation Discharge Coordination Time (in mins): 5 Quality: Safe Use of Opioids Does Pt have an Active Cancer Diagnosis on the Problem List?: No Quality: Stroke Does the patient have a stroke diagnosis?: No Physical Exam Vital Signs: Vital Signs: Last Vital Signs Temp 97.6 F 01/17/25 09:19 Pulse 60 01/17/25 09:19 Resp 14 01/17/25 09:19 BP 162/60 H 01/17/25 09:19 Pulse Ox 98 01/17/25 09:19 O2 Del Method Room Air 01/17/25 09:19 BMI result Body Mass Index 31.3 Discharge Plan Discharge Patient Disposition: Home, Self-Care Referrals: Min Brooks MD [Primary Care Provider, Internal Medicine] - 1 Week Discharge Medications: New tramadol 50 mg tablet 50 mg PO Q6H PRN (Reason: pain) Qty: 20 0RF Continued atorvastatin 40 mg tablet 40 mg PO DAILY diltiazem HCl 240 mg capsule,extended release 24hr 240 mg PO DAILY chlorthalidone 25 mg tablet 25 mg PO DAILY omeprazole 20 mg capsule,delayed release(DR/EC) 20 mg PO DAILY doxazosin 4 mg tablet 4 mg PO DAILY lisinopril 40 mg tablet 40 mg PO DAILY metformin 500 mg tablet extended release 24 hr 2,000 mg PO DAILY finasteride 5 mg tablet 5 mg PO DAILY insulin glargine U-300 conc [Toujeo Max U-300 SoloStar] 300 unit/mL (3 mL) insulin pen 42 unit SUBCUT DAILY Held Eliquis 5 mg tablet 5 mg PO BID Hold Instructions: Resume on 01/20/25. You may restart Eliquis 3 days after surgery Discharge Orders: Discharge Order (Routine); Ordered 01/17/25 Ordered By: Marlon Owens Diet: Advance to usual diet Activity on Discharge: As tolerated Activity Restrictions/Additional Instructions: After your spinal surgery we ask you to observe the following restrictions/guidelines: Activity: It is normal to feel some discomfort as you increase your activity, but that will improve with time. We ask you avoid heavy lifting or acitivities that cause pain. As a general rule, 8lbs is a safe limit for lifting right after surgery. Walk as much as you feel comfortable but not to exhaustion. You will feel extra tired the first few days after surgery. Stay well hydrated. It is OK to walk up and down stairs You may return to driving when you are off narcotics (such as vicodin, oxycodone, dilaudid, etc), and you are back to normal functional capacity. If you have any concerns please check with office before driving. Return to work is specific to each patient and each surgery, so please speak with your doctor/PA at first follow up. Please bring paperwork such as FMLA at that time if you need it filled out. Medications: You can restart Eliquis 3 days after surgery For optimum pain control, it is best to start with a combination of 500 mg of Tylenol every 4 hours with 600 mg of Motrin every 8 hours, and use narcotics as needed in between for breakthrough pain. We will give you a short supply of narcotics after surgery (usually one weeks worth). If you need more please call the office but do not use more than prescribed. You will need to give our office 48 hours notice if you need narcotics refilled and we do not fill narcotics on weekends or evenings. If you are on a narcotic, it is a good idea to take a stool softener such as colace or senna to avoid constipation If you take blood thinner such as aspirin, Plavix, Coumadin, Effient, Eliquis etc for conditions such as Afib, DVT, Pulmonary embolus, coronary disease, stents etc please speak with your surgeon about specific details as to when you can resume these medications. You can resume NSAIDs on post op day 1 (eg: Motrin, Naproxen, etc). Follow up: Please call the office, , after surgery to arrange a 3 week follow up for wound check. Wound Care: You may remove your dressing on the first day after surgery. ?You may ?leave open to air. Please do not remove the steri strips underneath. they will fall off on their own in one week. IT IS NORMAL FOR THE WOUND TO OOZE OR BE BLOODY FOR A FEW DAYS AFTER SURGERY. ?IF THIS HAPPENS JUST PLACE NEW DRESSING OVER IT TO AVOID STAINING CLOTHES. You may shower on post op day # 1 We ask that you do not let the water soak the wound. If it does get wet, just towel dry lightly. Please do not scrub your incision or place any type of chemical/ointment on the wound. No tub baths, pools or jacuzzis for one month. If you have any leaking or redness from your wound, or fevers, please call office Print Language: Monegasque
--- NOTE | 2025-01-17 11:49 | W.PM.OPN ---
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 I have explained the nature, purpose and benefits of the operation. I have discussed the risks and benefit of the operation including possible complications or adverse events with patient/family. Alternative(s) were discussed with the patient with their relative benefits and risks as well as the consequences of not accepting the operation were included in obtaining consent. Surgeon: GEMMA SILVA MD, PHD Procedure Assisted By: Marlon campbell Description of Procedure This 79-year-old male a suffering from a predominantly right lumbar radiculopathy due to a extradural benign mass compressing the L5 nerve root. The patient was offered a removal of the mass to decompress the nervous structure. The procedure complications were explained. The patient was consented. The patient was brought to the operating room and endotracheally intubated. The patient was turned in prone position on the Jason frame. Prep and drape was done followed by timeout. Physician assistant professor of mathematics provided access. A mid lumbar incision was made followed by release of the paravertebral muscle on the right side to expose the L4-5 lamina and facet joint. An intraoperative x-ray was obtained to confirm the correct level. The microscope was brought in. I took over the procedure. The high-speed drill was used to do a L4-5 laminotomy. The flavum ligament was opened to expose the underlying thecal sac and start of the L5 nerve root. A large cystic mass was identified and dissected from the L5 nerve root. When the mass was completely relieved from the L5 nerve root I removed it in toto. Most likely we were dealing with a synovial cyst. A long the nerve root could be easily passed, a sign of adequate decompression of the nerve root . The spinous process was undercut and this way I also was able to remove flavum ligament contralaterally to further decompress the thecal sac. The microscope was removed. Hemostasis was done. Incision was closed in 2 layers. Steri-Strips were used to approximate incision. An OpSite with Tegaderm was used to cover the incision. All sponge needle counts were correct. Patient was extubated and transported in stable is to recovery room. Anesthesia: General Estimated Blood Loss (ml): Minimal Duration of Surgery: Under 60 Minutes Postoperative Plan: Discharge to home
[2025-01-17 12:07] VITALS: BP 122/52; PULSE 57; RESP 12; TEMP 36.1; O2SAT 98
[2025-01-17 12:10] VITALS: BP 113/55; PULSE 54; RESP 18; O2SAT 93
[2025-01-17 12:15] VITALS: BP 111/52; PULSE 55; RESP 18; O2SAT 94
[2025-01-17 12:20] VITALS: BP 110/47; PULSE 53; RESP 16; O2SAT 95
[2025-01-17 12:29] VITALS: BP 127/64; PULSE 56; RESP 16; TEMP 36.1; O2SAT 95
== END 2025-01-17 13:06 | disposition home or self-care (01) ==
PROVIDERS: Nurse Practitioner; PCP Internal Medicine; Visit Provider Neurological Surgery
PROC: (CPT 63267; principal; 2025-01-17 11:00)
DX: M48.062 Spinal stenosis, lumbar region with neurogenic claudication (principal); M71.38 Other bursal cyst, other site; E88.2 Lipomatosis, not elsewhere classified; I48.0 Paroxysmal atrial fibrillation; E11.22 Type 2 diabetes mellitus with diabetic chronic kidney disease; I12.9 Hypertensive chronic kidney disease with stage 1 through stage 4 chronic kidney disease, or unspecified chronic kidney disease; N18.2 Chronic kidney disease, stage 2 (mild); Z79.01 Long term (current) use of anticoagulants; Z79.84 Long term (current) use of oral hypoglycemic drugs; Z79.85 Long-term (current) use of injectable non-insulin antidiabetic drugs; Z79.899 Other long term (current) drug therapy
CPT/HCPCS: 63267; 36415; 85027; J0131; J0690; J1100; J2003; J2405; J2704; J3010

== ENCOUNTER → 2025-01-17 08:55 | Outpatient (BNV) | payer MEDICARE, SELFPAY | PROVIDERS: PCP Internal Medicine; Visit Provider Neurological Surgery | DX: M48.062 Spinal stenosis, lumbar region with neurogenic claudication (principal) | CPT/HCPCS: 63267; 69990; 99499 ==

== ENCOUNTER 2025-02-07 09:27 | Outpatient (AMB) | payer MEDICARE, SELFPAY ==
--- NOTE | 2025-02-07 09:31 | HO.SPINEOV ---
Intake Visit Reasons: 1st post op Intake Note: Mr. Frost is here for his 1st post op. Emergency Manager Required: No Allergies No Known Allergies Allergy (Verified 02/07/25 09:32) Assessment & Plan Assessment & Plan (1) Spinal stenosis, lumbar region with neurogenic claudication: Code(s): M48.062 - Spinal stenosis, lumbar region with neurogenic claudication Category: Medical Plan Procedure: Right L4-5 Laminotomy for removal of extradural benign mass Alf is a pleasant 79 y/o M who comes in today for his 1st postoeprative visit after having Right L4-5 Laminotomy for removal of extradural benign mass completed by Dr. Torres a few weeks ago. To recap he was primarily reporting symptoms of neurogenic claudication when evaluated in clinic prior to surgery. Today he reports that he has recovered remarkably well from his surgery. He no longer has can be pains in his legs with ambulation. He denies any low back pain. He states that he took 2 Tylenol after surgery, but never needed any other medication to help control his pain. We discussed the postoperative healing course, and I answered any questions that he had. No new neurological deficits. The patient ambulates well and rises from a seated position without difficulty. His posterior incision site is closed and well healing. There is no need for continued routine follow up with Alf. He may follow up on an as-needed basis. Augustin Torres MD,PhD [facility] Coding Level of Care Code Global (38317) Diagnoses Spinal stenosis, lumbar region with neurogenic claudication M48.062
--- OUTSIDE RECORDS SUMMARY | 2025-02-07 09:53 | XMS_ITS | Patient Health Record ---
Author Organization [facility] Address [address] [place] [address] Care Team Providers Care Softball Umpire Name Role Phone Min Brooks Primary Care Provider UnavailAleah Rachel Unavailable [phone] Matt Suero Unavailable [phone] Allergies No Known Allergies Results Component Value Reference Range Notes HEMOGLOBIN A1C (GLYCOHEMOGLO BIN) Reviewed date:09/11/2024 09:15:46 AM Interpretation: Performing Lab: Notes/Report: HEMOGLOBIN A1C % (HH) 8.2 Reason For Referral No Information Medications Medication SIG (Take, Route, Frequency, Duration) Notes Start Date End Date Status Chlorthalidone 25 MG 1 tablet in the morning with food Orally Active Atenolol 25 MG 1 tablet Orally Twice a day Not-Taking Cinnamon Active Onglyza 10mg Not-Lucas ing Cardizem Active Extra-Depth Diabetic Shoes with 3 Pair Custom heat-molded multi-density innersoles . for 1 year . Dx:foot deformity with preulcerative skin lesions; Duration: . 05/08/2015 Not-Taking Extra-Depth Diabetic Shoes with 3 Pair Custom heat-molded multi-density innersoles . for 1 year . Dx:niddm with neuropathy, foot deformity and preulcerative skin lesions; Duration: . 03/13/2014 Not-Taking Extra Depth Orthopedic Shoes (1 Pair) with Customized Heat Molded Multidensity Innersoles (3 Pair) as directed Dx: IDDM/Polyneuropathy (E10.42), Hammertoe Foot Deformity (M20.41,M20.42), Preulcerative Skin Lesion(s) (L85.1) 09/01/2017 Not-Taking metFORMIN HCl ER (MOD) 500 MG 1 tablet with evening meal Orally Once a day Active Lisinopril 40 MG 1 tablet Orally Once a day Active glipiZIDE 5 MG Orally 2.5 morning Act joseluis Fish Oil 1000 MG as directed Orally Active Finasteride 5 MG 1 tablet Orally Once a day Active Extra Depth Orthopedic Shoes (1 Pair) with Customized Heat Molded Multidensity Innersoles (3 Pair) as directed Dx: NIDDM/Polyneuropathy (E11.42), Hammertoe Foot Deformity (M20.41,M20.42), Preulcerative Skin Lesion(s) (L85.1 08/30/2018 Not-Taking Eliquis 5 MG as directed Orally Active Simvastatin 20 MG 1 tablet in the evening Orally Once a day Not-Taking Doxazosin Mesylate 4 MG 1 tablet Orally Once a day Active Glimepiride 4 MG 1 tablet with breakfast or the first main meal of the day Orally Once a day Not-Taking Apple Cider Vinegar Not-Taking Extra Depth Orthopedic Shoes (1 Pair) with Customized Heat Molded Multidensity Innersoles (3 Pair) as directed Dx: NIDDM/Polyneuropathy (E11.42), Hammertoe Foot Deformity (M20.41,M20.42), Preulcerative Skin Lesion(s) (L85.1 05/11/2024 Active Omeprazole 20 MG 1 capsule Orally Once a day Active Metoprolol Succinate 25 MG 1 capsule Orally Active Atorvastatin Calcium 40 MG Orally Active Amoxicillin PRN Active Toujeo Max SoloStar 300 UNIT/ML as directed Subcutaneous Active Extra Depth Diabetic Shoes with 3 Pair Custom heat-molded multi-density innersoles for 1 year Dx: 07/03/2021 Not-Taking Extra Depth Diabetic Shoes with 3 Pair Custom heat-molded multi-density innersoles for 1 year Dx: Active amLODIPine Besylate 10 MG 1 tablet Orally Once a day Not-Taking aspirin 325 Not-Taki ng Extra-Depth Diabetic Shoes with 3 Pair Custom heat-molded multi-density innersoles . for 1 year . Dx:niddm with neuropathy, foot deformity and preulcerative skin lesions; Duration: . Not-Taking Trulicity Not-Taking Tresiba FlexTouch No t-Taking Immunizations Vaccine Route Administration Date Status Comme nts COVID-19 Pfizer BioNTech Vaccine Unknown 05/22/2021 Administered 1st 08/30/20 2nd 09/27/20 Influenza Unknown 04/17/2015 Administered Influenza Unknown 05/06/2017 Administered Influenza Unknown 04/17/2018 Administered Influenza Unknown 04/02/2019 Administered Influenza Unknown 04/22/2022 Administered Influenza Unknown 05/01/2024 Administered Social History Tobacco Use: Social History Observation Description Date Details (start date - stop date) Never Smoker NA - NA Alcohol Screen Question Answer Notes Did you have a drink contain ing alcohol in the past year? Yes How often did you have a dri nk containing alcohol in the past year? 4 or more times a week (4 points) Points 4 Interpretation Positive Tobacco use other than smoking: Question Answer Notes Are you an other tobacco user? No Tobacco Control (Standard) Question Answer Notes Tobacco use: Nonsmoker Problems Problem Type SNOMED Code ICD Code Onset Dates Problem Status W/U Status Risk Notes Problem Acquired hammer toe of right foot (5154899646736195 ) Other hammer toe(s) (acquired), right foot (M20.41) Active confirmed Problem Acquired hammer toe of left foot (7052089257201906 ) Other hammer toe(s) (acquired), left foot (M20.42) Active confirmed Problem Polyneuropathy due to type 2 diabetes mellitus (391147186) Type 2 diabetes mellitus with diabetic polyneuropathy (E11.42) Active confirmed Vital Signs Blood pressure diastolic 65 mm Hg 01/15/2025 Height 5 ft 7 in in 01/15/2025 Blood pressure systolic 145 mm Hg 01/15/2025 Weight 194 lbs 01/15/2025 BMI 30.38 kg/m2 01/15/2025 Encounters Encounter Location Date Provider Diagnosis [facility] [address] [place] [address] 02/09/2024 Matt Suero Tinea unguium B35.1 ; Type 2 diabetes mellitus with diabetic polyneuropathy E11.42 ; Pain in right toe(s) M79.674 ; Pain in left toe(s) M79.675 ; Other hammer toe(s) (acquired), left foot M20.42 ; Other hammer toe(s) (acquired), right foot M20.41 and Localized edema R60.[address] [address] 05/11/2024 Aleah Chavez Type 2 diabetes mellitus with diabetic polyneuropathy E11.42 ; Other hammer toe(s) (acquired), right foot M20.41 and Other hammer toe(s) (acquired), left foot M20.[address] [address] 09/11/2024 Aleah Scott Type 2 diabetes mellitus with diabetic polyneuropathy E11.42 ; Other hammer toe(s) (acquired), right foot M20.41 ; Other hammer toe(s) (acquired), left foot M20.42 and Tinea unguium B35.[address] [address] 01/15/2025 Aleah Chavez Type 2 diabetes mellitus with diabetic polyneuropathy E11.42 and Tinea unguium B35.[address] [address] 02/10/[address] [address] 01/15/2025 Aleah Chavez Assessments Encounter Date Diagnosis (ICD Code) Assessment Notes Treatment Notes Treatment Clinical Notes Section Notes 02/09/2024 Tinea unguium (ICD-10 - B35.1) 09/11/2024 Other hammer toe(s) (acquired), right foot (ICD-10 - M20.41) 09/11/2024 Type 2 diabetes mellitus with diabetic polyneuropathy (ICD-10 - E11.42) 01/15/2025 Tinea unguium (ICD-10 - B35.1) 01/15/2025 Type 2 diabetes mellitus with diabetic polyneuropathy (ICD-10 - E11.42) 09/11/2024 Other hammer toe(s) (acquired), left foot (ICD-10 - M20.42) 05/11/2024 Type 2 diabetes mellitus with diabetic polyneuropathy (ICD-10 - E11.42) 02/09/2024 Type 2 diabetes mellitus with diabetic polyneuropathy (ICD-10 - E11.42) 05/11/2024 Other hammer toe(s) (acquired), right foot (ICD-10 - M20.41) Patient Educated with: DIABETIC FOOT CARE INSTRUCTIONS. pdf (DIABETIC FOOT CARE INSTRUCTIONS. pdf) 05/11/2024 Other hammer toe(s) (acquired), left foot (ICD-10 - M20.42) 02/09/2024 Pain in right toe(s) (ICD-10 - M79.674) 09/11/2024 Tinea unguium (ICD-10 - B35.1) 02/09/2024 Pain in left toe(s) (ICD-10 - M79.675) 02/09/2024 Other hammer toe(s) (acquired), left foot (ICD-10 - M20.42) 02/09/2024 Other hammer toe(s) (acquired), right foot (ICD-10 - M20.41) 02/09/2024 Localized edema (ICD-10 - R60.0) Plan Of Treatment Pending Test Test Name Order Date 50541-BXEDXKU NAIL, 6 OR MORE 03/13/2014 99182-BFPGTJH NAIL, 6 OR MORE 06/12/2014 08702-BBNJWBN NAIL, 6 OR MORE 10/08/2014 10120-BSTXPXB NAIL, 6 OR MORE 01/08/2015 12823-VNUTBID NAIL, 6 OR MORE 05/08/2015 20061-EFXPOHA NAIL, 6 OR MORE 09/01/2015 69954-UYLOJJR NAIL, 6 OR MORE 01/07/2016 10414-IGPVMFK NAIL, 6 OR MORE 05/03/2016 86826-YREZYCS NAIL, 6 OR MORE 09/06/2016 59439-KQWIAMA NAIL, 6 OR MORE 01/06/2017 27203-ZZQDXEG NAIL, 6 OR MORE 05/12/2017 59168-UCOGRMO NAIL, 6 OR MORE 09/01/2017 57099-TJGBOOO NAIL, 6 OR MORE 04/26/2018 07914-IBYKIHK NAIL, 6 OR MORE 12/21/2017 50800-HGOO SKIN LESIONS, OVER 4 04/26/20 18 11206-YNUO SKIN LESIONS, OVER 4 08/30/19 19 62113-HAEY SKIN LESIONS, OVER 4 12/28/19 19 34524-ZAGI SKIN LESIONS, OVER 4 03/29/20 19 29787-RYHG SKIN LESIONS, OVER 4 07/12/20 19 13888-XKMJ SKIN LESIONS, OVER 4 12/05/19 20 54385-LLAW SKIN LESIONS, OVER 4 04/24/20 20 03285-QXGE SKIN LESIONS, OVER 4 08/27/19 21 79459-SRLD SKIN LESIONS, OVER 4 12/25/19 21 10321-PMCR SKIN LESIONS, OVER 4 05/06/20 21 52567-RINV SKIN LESIONS, OVER 4 09/17/19 22 57722-SIQB SKIN LESIONS, OVER 4 12/22/19 18 79126-ZLZA SKIN LESIONS, OVER 4 09/01/19 18 89498-SMWL SKIN LESIONS, OVER 4 05/12/20 17 85735-AJOR SKIN LESIONS, OVER 4 09/06/19 17 13101-DCER SKIN LESIONS, OVER 4 01/07/20 17 75319-VGZC SKIN LESIONS, OVER 4 05/03/20 16 83486-LEYF SKIN LESIONS, OVER 4 01/07/20 16 44481-NVDW SKIN LESIONS, OVER 4 09/01/19 16 79040-DFEH SKIN LESIONS, OVER 4 05/08/20 15 36539-BDFS SKIN LESIONS, OVER 4 01/09/20 15 35128-LHCK SKIN LESIONS, OVER 4 10/09/19 15 17218-QQVK SKIN LESIONS, OVER 4 06/12/20 14 15848-AVOB SKIN LESIONS, OVER 4 03/13/20 14 Next Appt Details Provider Name:Aleah mcleod, 04/23/2025 10:00:00 AM, [address] [place], [address], Insurance Providers Payer Name Payer Address Payer Phone Subscriber Number Group Number Insured Name Patient Relationship to Insured Coverage Start Date Coverage End Date [employer] [place] Medicare Advantage [address] [facility] [place] rowe [id number] Alf Mooney Self - patient is the insured 4 Medical (General) History Medical History History ICD Code type II diabetes hypertension Hepatitis Chicken pox Surgical History Surgery Date(Month/Year) right hip replacement 08/02/17 left hip replacement 06/18 [facility]s surgery 04/03/2020 [facility] surgery x2 12/23 Hospitalization History Reason Date(Month/Year) [facility] ER - TIA 1day 07/2021 [facility] - Afib 1 day 05/2021 ER Visit-Cut right thigh on boat 12 stiches- large hemotoma on left valdez had ultrasound sees wound care 01/2020 A Fib 08/2019
--- OUTSIDE RECORDS SUMMARY | 2025-02-07 09:53 | XMS_ITS | Clinical Summary ---
Author Organization [facility], Address [address] [facility] [place] [address] Phone Care Team Providers Care Real Estate Consultant Name Role Phone Rob Elder MD Primary Care Provider [phone] Allergies Active Allergy Reactions Criticality Noted Date [...] and 5 mg in the evening. Active [place]-3 Fatty Acids (Fish Oil) 1000 MG capsule [...] A1C 03/02/2023 023, 07/13/2022, 03/16/2022 Influenza Vaccine (#1) 2025 , 04/02/2019, 04/17/2018, Additional history exists Hepatitis B [...] AM EDT) Hemoglobin A1C 7.4(H) (4.0-5.6) % [facility] Comment: MONITORING: In known diabetic patients, hemoglobin A1c targets should be discussed with health care provider. DIAGNOSTIC USE: The [place] Diabetes Association (ADA) and the World Health [...] Supplement 1 Testing performed or reported by [facility], a Service of [facility], [address] [place] [address] Fahad Alejandre MD, Resident Engineer [facility]# [id number] Blood specimen (specimen) Venous blood / Unknown 11/30/2022 8:14 AM EDT 11/30/2022 9:16 AM EDT us Matthew [facility] LAB BLOOD ORDERABLES Final Re sult [facility] from Last 3 Months or Most Recently Relevant to Health Maintenance Insurance [facility] Care Teams Real Estate Consultant Relationship Specialty Start Date End Date Rob Elder MD [address] [place] PCP - General Internal Medicine 07/28/21
== END 2025-02-07 10:28 | disposition home or self-care (01) ==
LOC: HO.HNS 09:27
PROVIDERS: Visit Provider Physician Assistant
DX: M48.062 Spinal stenosis, lumbar region with neurogenic claudication (principal)
CPT/HCPCS: 99024

== ENCOUNTER → 2025-02-07 09:27 | Outpatient (BNVA) | payer MEDICARE, SELFPAY | PROVIDERS: Visit Provider Physician Assistant | DX: M48.062 Spinal stenosis, lumbar region with neurogenic claudication (principal); Z98.890 Other specified postprocedural states | CPT/HCPCS: 99212 ==

== ENCOUNTER 2025-05-01 14:37 | Outpatient (REF) | payer MEDICARE, SELFPAY ==
--- NOTE | ~2025-05-01 | XR_ITS ---
EXAMINATION: XR LUMBAR SPINE 4 OR MORE VIEWS HISTORY: M48.062 - Spinal stenosis, lumbar region with neurogenic claudication COMPARISON: Comparison is made with the prior examination dated 12/26/2024. FINDINGS: AP, and neutral, flexion, and extension lateral views of the lumbar spine are submitted. Osseous mineralization is normal. The vertebral bodies maintain normal height. Again seen is moderate to severe degenerative disc disease with disc space narrowing and osteophyte formation. There is slight retrolisthesis of L2 on L3 and L3 on L4, which does not change with flexion or extension. There is calcification of the abdominal aorta. The patient is status post bilateral total hip arthroplasty. XR/XR lumbar spine 4V min IMPRESSION: Moderate to severe degenerative disc disease. Slight retrolisthesis of L2 on L3 and L3 on L4, which does not change with flexion or extension. Electronically signed by: Luisito Garay MD 05/01/2025 03:55 PM EDT
== END 2025-05-01 14:38 | disposition home or self-care (01) ==
LOC: HO.HOSX 14:37
PROVIDERS: PCP Internal Medicine; Visit Provider Neurological Surgery
DX: M48.062 Spinal stenosis, lumbar region with neurogenic claudication (principal); M54.16 Radiculopathy, lumbar region; Z98.890 Other specified postprocedural states
CPT/HCPCS: 72110; 99212

== ENCOUNTER 2025-05-01 14:37 | Outpatient (AMB) | payer MEDICARE, SELFPAY ==
--- NOTE | 2025-05-01 15:19 | A.SPINEOV_ITS ---
Intake Visit Reasons: Back pain 01/14/25 Intake Note: Mr. Frost is here today c/o Left sided buttocks pain that shoots to the front of the thigh since march. Adolescent Medicine Specialist Required: No Allergies No Known Allergies Allergy (Verified 02/07/25 09:32) Assessment & Plan Assessment & Plan (1) Spinal stenosis, lumbar region with neurogenic claudication: Code(s): M48.062 - Spinal stenosis, lumbar region with neurogenic claudication Category: Medical Plan: Dear colleague, On 05/01/2025, I saw for return visit Alf Mooney. 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 He was symptom free until the beginning of March when he developed some radiation into the left front thigh. The symptoms progressed and were worse at the beginning of April and are now somewhat improving. The r ight side is unaffected. The pain comes with prolonged sitting, standing. Walking is not bad. He denies weakness or numbness. On exam, straight leg raise is negative. No motor or sensory deficits. Dynamic lumbar x-rays show no signs of instability. In summary, this patient developed a left lumbar radiculopathy in March with the peak of symptoms in the beginning of April. Differential diagnosis is an acute disc herniation or another form of pathology causing nerve compression. I would like to order an MRI of the lumbar spine with contrast after which the patient will return to my clinic. I spent 30 minutes in his consult for history physical exam and discussing plan of care. Dakotah Torres MD, PhD Spine Fellowship Trained Neurosurgeon Director, [facility] (2) Acute left lumbar radiculopathy: Code(s): M54.16 - Radiculopathy, lumbar region Category: Medical Plan: c Orders: Orders XR lumbar spine 4V min Today M48.062 - Spinal stenosis, lumbar region with neurogenic claudication MR lumbar spine wo/w con Today M54.16 - Radiculopathy, lumbar region Coding Level of Care Code Est Pt Level 4 (49110) Diagnoses Spinal stenosis, lumbar region with neurogenic claudication M48.062 Acute left lumbar radiculopathy M54.16
--- OUTSIDE RECORDS SUMMARY | 2025-05-01 15:50 | XMS_ITS | Encounter Summary ---
Author Organization [facility], Address [address] [place] [address] Phone Care Team Providers Care Knockout Worker Name Role Phone Rob Elder MD Primary Care Provider [phone] Encounter Details Date Type Department Care Team (Late st Contact Info) Description 02/09/2022 Office Communication [facility], [address] [place] [phone] Willian Araya MD [address] [place] [place] [phone] Social History Tobacco Use Types Packs/Day Years [...] on filedocumented in this encounter Care Teams Knockout Worker Relationship Specialty Start Date End Date Rob Elder MD [address] [place] PCP - General Internal Medicine 07/28/21 documented as of this encounter
--- OUTSIDE RECORDS SUMMARY | 2025-05-01 15:50 | XMS_ITS | Clinical Summary ---
Author Organization [facility], Address [address] [facility] [address] [place] [address] Phone Care Team Providers Care Production Line Manager Name Role Phone Rob Elder MD Primary Care Provider [phone] Allergies Active Allergy Reactions Criticality Noted Date [...] and 5 mg in the evening. Active [place]-3 Fatty Acids (Fish Oil) 1000 MG capsule [...] AM EDT) Hemoglobin A1C 7.4(H) (4.0-5.6) % [facility] Comment: MONITORING: In known diabetic patients, hemoglobin A1c targets should be discussed with health care provider. DIAGNOSTIC USE: The [place] Diabetes Association (ADA) and the World Health [...] Supplement 1 Testing performed or reported by [facility], a Service of [facility], [address] [place] [address] Fahad Alejandre MD, Chief Enterprise Architect [facility]# [id number] Blood specimen (specimen) Venous blood / Unknown 11/30/2022 8:14 AM EDT 11/30/2022 9:16 AM EDT us Matthew PUGH LAB BLOOD ORDERABLES Final Re sult [facility] from Last 3 Months or Most Recently Relevant to Health Maintenance Insurance [facility] Care Teams Production Line Manager Relationship Specialty Start Date End Date Rob Elder MD [address] [place] PCP - General Internal Medicine 07/28/21
--- OUTSIDE RECORDS SUMMARY | 2025-05-01 15:50 | XMS_ITS | Encounter Summary ---
Author Organization [facility] [place], Address [address] [place] [address] Phone Care Team Providers Care Ballistics Tester Name Role Phone Rob Elder MD Primary Care Provider [phone] Encounter Details Date Type Department Care Team (Late st Contact Info) Description 05/28/2024 Office Communication [facility] [place], [facility] [address] [place] [phone] Willian Araya MD [address] [place] [phone] Social History Tobacco Use Types Packs/Day Years [...] on filedocumented in this encounter Care Teams Ballistics Tester Relationship Specialty Start Date End Date Rob Elder MD [address] [place], [place] PCP - General Internal Medicine 07/28/21 documented as of this encounter
== END 2025-05-01 15:56 | disposition home or self-care (01) ==
LOC: HO.HNS 14:38
PROVIDERS: PCP Internal Medicine; Visit Provider Neurological Surgery
DX: M48.062 Spinal stenosis, lumbar region with neurogenic claudication (principal); M54.16 Radiculopathy, lumbar region
CPT/HCPCS: 99214

== ENCOUNTER → 2025-05-01 15:35 | Outpatient (BNV) | payer MEDICARE, SELFPAY | PROVIDERS: PCP Internal Medicine; Visit Provider Radiology Diagnostic Radiology | DX: M48.062 Spinal stenosis, lumbar region with neurogenic claudication (principal); M51.369 Other intervertebral disc degeneration, lumbar region without mention of lumbar back pain or lower extremity pain | CPT/HCPCS: 72110 ==

== ENCOUNTER → 2025-05-22 08:11 | Outpatient (BNV) | payer MEDICARE, SELFPAY | PROVIDERS: Visit Provider Radiology Diagnostic Radiology | DX: M46.45 Discitis, unspecified, thoracolumbar region (principal); G06.1 Intraspinal abscess and granuloma | CPT/HCPCS: 72158 ==

== ENCOUNTER 2025-05-22 08:27 | Outpatient (REF) | payer MEDICARE, SELFPAY ==
--- OUTSIDE RECORDS SUMMARY | 2024-01-26 04:00 | XMS_ITS ---
Author Organization [facility] Address [address] [place] [address] Care Team Providers Care Waterproofer Helper Name Role Phone Min Brooks Primary Care Provider UnavailAleah Rachel Unavailable [phone] Matt Masters Unavailable [phone] Flores Encounters Encounter Location Date Provider Diagnosis [facility] [address] [place] [address] 01/26/2024 Matt Masters Plan Of Treatment No Information Progress Notes * Alf MCCALL JDOB:[birth year] (79 yo M)Acc No.[id number]:01/26/2024 Progress Note Patient: Juan BROWN Edmond Anoop Provider: Dunia Suero DPM :1945 A ge:78 Y S ex:Male Date:01/26/2024 Address:[address] [place] [phone] Pcp:Min Brooks Subjective: * Chief Complaints: * [...] 01/26/2024 Generated for Jeffrey woodall/Svetlana/Anselmo on: 1 08:44 AM EDT
--- OUTSIDE RECORDS SUMMARY | 2024-01-30 04:30 | XMS_ITS ---
Author Organization [facility] Address [address] [place] [address] Care Team Providers Care Yard Specialist Name Role Phone Min Brooks Primary Care Provider Aleah Gaviria Unavailable [phone] Matt Masters Unavailable [phone] REASON FOR VISIT Painful nail(s) aggrevated by shoes and causing difficulty standing/walking. Medications Medication SIG (Take, Route, Frequency, Duration) Notes Start Date End Date Status Extra Depth Diabetic Shoes with 3 Pair Custom heat-molded multi-density innersoles for 1 year Dx: Active Encounters Encounter Location Date Provider Diagnosis [facility] [address] [place] [address] 01/30/2024 Matt Masters Tinea unguium B35.1 ; [...] as necessary. Patient chooses, no pharmaceutical tx (69674) Keratoma Treatment Parring or Cutting o f Benign Hyperkeratotic Lesion(s) 52421 ( >4 Lesions) - The Benign hyperkeratotic lesions, as described above were pared, and/or cut utilizing a sterile #15 blade, tissue nippers, and/or dremel Progress Notes * Alf MCCALLDOB:[birth year] (79 yo M)Acc No.[id number]:01/30/2024 Progress Note Patient: Juan BROWN Alf Anoop Provider: Dunia Suero DPM :1945 A ge:78 Y S ex:Male Date:01/30/2024 Address:[address] [place] [address] [place], [id number] Pcp:Min Brooks Subjective: * Chief Complaints: * [...] enies. C ardiovascular: Pacemaker d enies. M BUMPER OPERATOR d enies. W PW d enies. C [...] as necessary. Patient chooses, no pharmaceutical tx (51534). K eratoma Treatment: Parring or Cutting of Benign Hyperkeratotic Lesion(s) 1 1057 ( >4 Lesions) - The Benign hyperkeratotic lesions, as described above were pared, and/or cut utilizing a sterile #15 blade, tissue nippers, and/or dremel. * Procedure Codes: 1 1721 DEBRIDE NAIL, 6 OR MORE, Modifiers: XS , 13278 TRIM SKIN LESIONS, OVER 4, Modifiers: XS * Follow Up: 3 Months * Images: * The named appointment provid er may or may not be the originator of this progress note, and it is not deemed complete until electronically signed by the appointment provider. Sign off status: Pending * Provider: Dunia Suero DPM Date: 0 01/30/2024 Generated for Jeffrey woodall/Svetlana/Anselmo on: 08:44 AM EDT History and Physical Notes * HPI [...]
--- OUTSIDE RECORDS SUMMARY | 2024-05-10 04:00 | XMS_ITS ---
Author Organization [facility] Address [address] [place] [address] Care Team Providers Care Fire Alarm Installer Name Role Phone Min Brooks Primary Care Provider Aleah Gaviria Unavailable [phone] Matt Masters Unavailable [phone] Encounters Encounter Location Date Provider Diagnosis [facility] [address] [place] [address] 05/10/2024 Matt Masters Plan Of Treatment No Information Progress Notes * LEEPARADISE Alf JDOB:[birth year] (79 yo M)Acc No.[id number]:05/10/2024 Progress Note Patient: Alf LANE Provider: Dunia Suero DPM :1945 A ge:78 Y S ex:Male Date:05/10/2024 Address:[address] [place] [phone] Pcp:Min Brooks Subjective: * Chief Complaints: * [...] 1 Generated for Jeffrey woodall/Svetlana/Anselmo on: 1 08:45 AM EDT
--- OUTSIDE RECORDS SUMMARY | 2025-04-23 06:00 | XMS_ITS ---
Author Organization [facility] Address [address] [place] [address] Care Team Providers Care Auto Locator Name Role Phone Min Brooks Primary Care Provider Aleah Gaviria [phone] Encounters Encounter Location Date Provider Diagnosis [facility] [address] [place] [address] 04/23/2025 Aleah Chavez Plan Of Treatment No Information Progress Notes * ARNULFOAlf GHOTRA JDOB:[birth year] (79 yo M)Acc No.[id number]:04/23/2025 Progress Note Patient: Juan BROWN Edmond Anoop Provider: Conchis Chavez DPM :1945 A ge:79 Y S ex:Male Date:04/23/2025 Address:[address] [place] [phone] Pcp:Min Brooks Subjective: * Chief Complaints: * [...] 04/23/2025 Generated for Printi ng/Fanaeg/eTransmitting on: 1 08:45 AM EDT
--- NOTE | ~2025-05-22 | MR_ITS ---
CLINICAL HISTORY: M54.16 - Radiculopathy, lumbar region Lumbar MRI Without and With Contrast: Comparison: 05/01/2025 plain films, 12/26/2024 plain films. Findings: Alignment is good There is enhancement of intervertebral disc space at T11-T12 consistent with discitis/infection. There is enhancement of T12-L1 intervertebral disc also consistent with discitis/infection. There is increased T2 signal and also fat-suppressed T1 enhancement of anterior superior L3 vertebral body and anterior left soft tissue and left psoas muscle myositis/abscess. There is fluid signal with epidural enhancement of fluid posterior to L4 and L5 vertebral bodies with extra thecal 8 mm short axis diameter fluid collection compression of the thecal sac and displacement of nerve root sleeves. Impression: 1. There is left side infiltrating exudate and abscess anterior to L3 vertebral body. 2. Epidural abscess posterior to L4 and L5 with extrinsic compression of the thecal sac. 3. Discitis/infection involving T11-12 and T12-L1 intervertebral discs. This document has been electronically signed by: Nicko Marie MD on 05/23/2025 15:24:32
--- OUTSIDE RECORDS SUMMARY | 2025-05-22 08:44 | XMS_ITS | Clinical Summary ---
Author Organization [facility], Address [address] [facility] [address] [place] [address] Phone Care Team Providers Care Director Process Engineering Name Role Phone Rob Elder MD Primary Care Provider [phone] Allergies Active Allergy Reactions Criticality Noted Date [...] and 5 mg in the evening. Active [place]-3 Fatty Acids (Fish Oil) 1000 MG capsule [...] AM EDT) Hemoglobin A1C 7.4(H) (4.0-5.6) % [facility] Comment: MONITORING: In known diabetic patients, hemoglobin A1c targets should be discussed with health care provider. DIAGNOSTIC USE: The [place] Diabetes Association (ADA) and the World Health [...] Supplement 1 Testing performed or reported by [facility], a Service of [facility], [address] [place] [address] Fahad Alejandre MD, Belt Builder [facility]# [id number] Blood specimen (specimen) Venous blood / Unknown 11/30/2022 8:14 AM EDT 11/30/2022 9:16 AM EDT us Matthew PUGH LAB BLOOD ORDERABLES Final Re sult [facility] from Last 3 Months or Most Recently Relevant to Health Maintenance Insurance [facility] Care Teams Director Process Engineering Relationship Specialty Start Date End Date Rob Elder MD [address] [place] PCP - General Internal Medicine 07/28/21
--- OUTSIDE RECORDS SUMMARY | 2025-05-22 08:45 | XMS_ITS | Encounter Summary ---
Author Organization [facility] [place], Address [address] [place] [address] Phone Care Team Providers Care Studio Operator Name Role Phone Rob Elder MD Primary Care Provider [phone] Encounter Details Date Type Department Care Team (Late st Contact Info) Description 02/09/2022 Office Communication [facility] [place], [address] [place] [phone] Willian Araya MD [address] [place] [phone] Social History Tobacco Use Types Packs/Day Years [...] on filedocumented in this encounter Care Teams Studio Operator Relationship Specialty Start Date End Date Rob Elder MD [address] [place] PCP - General Internal Medicine 07/28/21 documented as of this encounter
--- OUTSIDE RECORDS SUMMARY | 2025-05-22 08:45 | XMS_ITS | Encounter Summary ---
Author Organization [facility] [place], Address [address] [place] [address] Phone Care Team Providers Care Environmental Programs Manager Name Role Phone Rob Elder MD Primary Care Provider [phone] Encounter Details Date Type Department Care Team (Late st Contact Info) Description 05/28/2024 Office Communication [facility] [place], [facility] [address] [place] [phone] Willian Araya MD [address] [facility] [place] [phone] Social History Tobacco Use Types Packs/Day Years [...] on filedocumented in this encounter Care Teams Environmental Programs Manager Relationship Specialty Start Date End Date Rob Elder MD [address] [place], [place] PCP - General Internal Medicine 07/28/21 documented as of this encounter
--- OUTSIDE RECORDS SUMMARY | 2025-05-22 08:45 | XMS_ITS | Patient Health Record ---
Author Organization [facility] Address [address] [place] [address] Care Team Providers Care Spanish Linguist Name Role Phone Min Brooks Primary Care Provider Aleah Gaviria Unavailable [phone] Allergies No Known Allergies Results Component Value [...] Vaccine Route Administration Date Status Comme nts Influenza Unknown 04/17/2015 Administered Influenza Unknown 05/06/2017 Administered Influenza Unknown 04/17/2018 Administered Influenza Unknown 04/02/2019 Administered Influenza Unknown 04/22/2022 Administered Influenza Unknown 05/01/2024 Administered COVID-19 Pfizer BioNTech Vaccine Unknown 05/22/2021 Administered 1st 08/30/20 2nd 09/27/20 Social History Tobacco Use: Social History Observation [...] Problem Acquired hammer toe of right foot (1426442076633260 ) Other hammer toe(s) (acquired), right foot (M20.41) Active confirmed Problem Acquired hammer toe of left foot (9840194801738049 ) Other hammer toe(s) (acquired), left foot (M20.42) Active confirmed Problem Polyneuropathy due to type 2 diabetes mellitus (650460220) Type 2 diabetes mellitus with diabetic polyneuropathy (E11.42) Active confirmed Vital Signs Blood pressure diastolic 65 mm Hg 01/15/2025 Height 5 ft 7 in in 01/15/2025 Blood pressure systolic 145 mm Hg 01/15/2025 Weight 194 lbs 01/15/2025 BMI 30.38 kg/m2 01/15/2025 Encounters Encounter Location Date Provider Diagnosis [facility] [address] [address] 09/11/2024 Aleah Chavez Type 2 diabetes mellitus with diabetic polyneuropathy E11.42 ; Other hammer toe(s) (acquired), right foot M20.41 ; Other hammer toe(s) (acquired), left foot M20.42 and [facility]guium [facility] [address] 01/15/2025 Aleah Chavez Type 2 diabetes mellitus with diabetic polyneuropathy E11.42 and Tinea unguium B35.1 [facility] [address] [place] [address] 01/15/2025 [facility] [address] [facility] [address] [place] [address] 04/15/2025 Aleah Chavez Assessments Encounter Date Diagnosis (ICD Code) Assessment Notes Treatment Notes Treatment Clinical Notes Section Notes 09/11/2024 Other hammer toe(s) (acquired), right foot (ICD-10 - M20.41) 09/11/2024 Type 2 diabetes mellitus with diabetic polyneuropathy (ICD-10 - E11.42) 01/15/2025 Tinea unguium (ICD-10 - B35.1) 01/15/2025 Type 2 diabetes mellitus with diabetic polyneuropathy (ICD-10 - E11.42) 09/11/2024 Other hammer toe(s) (acquired), left foot (ICD-10 - M20.42) 09/11/2024 Tinea unguium (ICD-10 - B35.1) Plan Of Treatment Pending Test Test Name Order Date [id number]-[id number] NAIL, 6 OR MORE 03/13/2014 46256-KQDTIWL NAIL, 6 OR MORE 06/12/2014 93624-ZDQODTD NAIL, 6 OR MORE 10/08/2014 60682-NYVUUFL NAIL, 6 OR MORE 01/08/2015 36125-LTOZLKT NAIL, 6 OR MORE 05/08/2015 84737-CNNPDMD NAIL, 6 OR MORE 09/01/2015 51306-EJKRQGJ NAIL, 6 OR MORE 01/07/2016 77913-BYRSZBT NAIL, 6 OR MORE 05/03/2016 13393-FESMMUJ NAIL, 6 OR MORE 09/06/2016 62466-OUXFCZT NAIL, 6 OR MORE 01/06/2017 85702-WJFUTDW NAIL, 6 OR MORE 05/12/2017 58588-NNPQFQM NAIL, 6 OR MORE 09/01/2017 53524-DHKKQQR NAIL, 6 OR MORE 04/26/2018 46510-BMPAZBT NAIL, 6 OR MORE 12/21/2017 92084-UADQ SKIN LESIONS, OVER 4 04/26/20 18 80947-QRMM SKIN LESIONS, OVER 4 08/30/19 19 66809-XWTP SKIN LESIONS, OVER 4 12/28/19 19 64704-IJJY SKIN LESIONS, OVER 4 03/29/20 19 34237-VOAV SKIN LESIONS, OVER 4 07/12/20 19 99740-HYBZ SKIN LESIONS, OVER 4 12/05/19 20 97253-CXRL SKIN LESIONS, OVER 4 04/24/20 20 86102-AILW SKIN LESIONS, OVER 4 08/27/19 21 87161-TJXX SKIN LESIONS, OVER 4 12/25/19 21 95159-DHVW SKIN LESIONS, OVER 4 05/06/20 21 72801-PWWL SKIN LESIONS, OVER 4 09/17/19 22 05143-DNRS SKIN LESIONS, OVER 4 12/22/19 18 95961-GOCC SKIN LESIONS, OVER 4 09/01/19 18 17704-ZURA SKIN LESIONS, OVER 4 05/12/20 17 51963-OGDC SKIN LESIONS, OVER 4 09/06/19 17 50485-ENCF SKIN LESIONS, OVER 4 01/07/20 17 28321-SGEV SKIN LESIONS, OVER 4 05/03/20 16 79500-XARE SKIN LESIONS, OVER 4 01/07/20 16 34637-EBIL SKIN LESIONS, OVER 4 09/01/19 16 13644-OADL SKIN LESIONS, OVER 4 05/08/20 15 48279-XDEO SKIN LESIONS, OVER 4 01/09/20 15 29782-ZKUY SKIN LESIONS, OVER 4 10/09/19 15 65488-IRFP SKIN LESIONS, OVER 4 06/12/20 14 90814-IDSY SKIN LESIONS, OVER 4 03/13/20 14 Insurance Providers Payer Name Payer Address Payer Phone Subscriber Number Group Number Insured Name Patient Relationship to Insured Coverage Start Date Coverage End Date [employer] [place] Medicare [employer]vantage [address] [facility] [id number] Alf Mooney Self - patient is the insured 4 Medical (General) History Medical History History ICD Code type II diabetes hypertension Hepatitis Chicken pox Surgical History Surgery Date(Month/Year) right hip replacement 08/02/17 left hip replacement 06/18 [facility] surgery 04/03/2020 [facility] surgery x2 12/23 Hospitalization History Reason Date(Month/Year) [facility] - TIA 1day 07/2021 [facility] ER - Afib 1 day 05/2021 ER Visit-Cut right thigh on boat 12 stiches- large hemotoma on left valdez had ultrasound sees wound care 01/2020 A Fib 08/2019
== END 2025-05-22 08:28 | disposition home or self-care (01) ==
LOC: HO.MRI 08:27
PROVIDERS: Visit Provider Neurological Surgery
DX: M54.16 Radiculopathy, lumbar region (principal)
CPT/HCPCS: 72158; A9585

== ENCOUNTER 2025-05-24 09:57 | Outpatient (REF) | payer MEDICARE, SELFPAY ==
--- OUTSIDE RECORDS SUMMARY | 2024-01-26 04:00 | XMS_ITS ---
Author Organization [facility] Address [address] [place] [address] Care Team Providers Care Supervisor Production Managing Name Role Phone Min Brooks Primary Care Provider UnavailAleah Rachel Unavailable [phone] Matt Masters Unavailable [phone] Flores Encounters Encounter Location Date Provider Diagnosis [facility] [address] [place] [address] 01/26/2024 Matt Masters Plan Of Treatment No Information Progress Notes * Alf MCCALL JDOB:[birth year] (79 yo M)Acc No.[id number]:01/26/2024 Progress Note Patient: Juan BROWN Edmond Anoop Provider: Dunia Suero DPM :1945 A ge:78 Y S ex:Male Date:01/26/2024 Address:[address] [place] [address] Pcp:Min Brooks Subjective: * Chief Complaints: * [...] 01/26/2024 Generated for Jeffrey woodall/Svetlana/Anselmo on: 1 11:13 AM EDT
--- OUTSIDE RECORDS SUMMARY | 2024-01-30 04:30 | XMS_ITS ---
Author Organization [facility] Address [address] [place] [address] Care Team Providers Care Email Marketing Intern Name Role Phone Min Brooks Primary Care Provider Aleah Gaviria Unavailable [phone] Matt Masters Unavailable [phone] REASON FOR VISIT Painful nail(s) aggrevated by shoes and causing difficulty standing/walking. Medications Medication SIG (Take, Route, Frequency, Duration) Notes Start Date End Date Status Extra Depth Diabetic Shoes with 3 Pair Custom heat-molded multi-density innersoles for 1 year Dx: Active Encounters Encounter Location Date Provider Diagnosis [facility] [address] [place] [address] 01/30/2024 Matt Masters Tinea unguium B35.1 ; [...] as necessary. Patient chooses, no pharmaceutical tx (61793) Keratoma Treatment Parring or Cutting o f Benign Hyperkeratotic Lesion(s) 49619 ( >4 Lesions) - The Benign hyperkeratotic lesions, as described above were pared, and/or cut utilizing a sterile #15 blade, tissue nippers, and/or dremel Progress Notes * Alf MCCALLDOB:[birth year] (79 yo M)Acc No.[id number]:01/30/2024 Progress Note Patient: Juan BROWN Alf Anoop Provider: Dunia Suero DPM :1945 A ge:78 Y S ex:Male Date:01/30/2024 Address:[address] [place] [address] [place], [phone] Pcp:Min Brooks Subjective: * Chief Complaints: * [...] enies. C ardiovascular: Pacemaker d enies. M MENTAL HEALTH NURSE PRACTITIONER d enies. W PW d enies. C [...] as necessary. Patient chooses, no pharmaceutical tx (98447). K eratoma Treatment: Parring or Cutting of Benign Hyperkeratotic Lesion(s) 1 1057 ( >4 Lesions) - The Benign hyperkeratotic lesions, as described above were pared, and/or cut utilizing a sterile #15 blade, tissue nippers, and/or dremel. * Procedure Codes: 1 1721 DEBRIDE NAIL, 6 OR MORE, Modifiers: XS , 83946 TRIM SKIN LESIONS, OVER 4, Modifiers: XS * Follow Up: 3 Months * Images: * The named appointment provid er may or may not be the originator of this progress note, and it is not deemed complete until electronically signed by the appointment provider. Sign off status: Pending * Provider: Dunia Suero DPM Date: 0 01/30/2024 Generated for Jeffrey woodall/Svetlana/Anselmo on: 11:14 AM EDT History and Physical Notes * [...]
--- OUTSIDE RECORDS SUMMARY | 2024-05-10 04:00 | XMS_ITS ---
Author Organization [facility] Address [address] [place] [address] Care Team Providers Care Delivery Stock Clerk Name Role Phone Min Brooks Primary Care Provider Aleah Gaviria Unavailable [phone] Matt Masters Unavailable [phone] Encounters Encounter Location Date Provider Diagnosis [facility] [address] [place] [address] 05/10/2024 Matt Masters Plan Of Treatment No Information Progress Notes * LEEPARADISE Alf JDOB:[birth year] (79 yo M)Acc No.[id number]:05/10/2024 Progress Note Patient: Alf LANE Provider: Dunia Suero DPM :1945 A ge:78 Y S ex:Male Date:05/10/2024 Address:[address] [place] [id number] Pcp:Min Brooks Subjective: * Chief Complaints: * [...] 1 Generated for Jeffrey woodall/Svetlana/Anselmo on: 1 11:14 AM EDT
--- OUTSIDE RECORDS SUMMARY | 2025-04-23 06:00 | XMS_ITS ---
Author Organization [facility] Address [address] [place] [address] Care Team Providers Care Senior Data Architect Name Role Phone Min Brooks Primary Care Provider Aleah Gaviria [phone] Encounters Encounter Location Date Provider Diagnosis [facility] [address] [place] [address] 04/23/2025 Aleah Chavez Plan Of Treatment No Information Progress Notes * ARNULFOAlf GHOTRA JDOB:[birth year] (79 yo M)Acc No.[id number]:04/23/2025 Progress Note Patient: Juan BROWN Edmond Anoop Provider: Conchis Chavez DPM :1945 A ge:79 Y S ex:Male Date:04/23/2025 Address:[address] [place] [address] Pcp:Min Brooks Subjective: * Chief Complaints: * [...] 04/23/2025 Generated for Printi ng/Fanaeg/eTransmitting on: 1 11:14 AM EDT
--- OUTSIDE RECORDS SUMMARY | 2025-05-24 11:14 | XMS_ITS | Clinical Summary ---
Author Organization [facility], Address [address] [facility] [address] [place] [address] Phone Care Team Providers Care Telecommunications Field Technician Name Role Phone Rob Elder MD Primary Care Provider [phone] Allergies Active Allergy Reactions Criticality Noted Date [...] and 5 mg in the evening. Active [place]-3 Fatty Acids (Fish Oil) 1000 MG capsule [...] AM EDT) Hemoglobin A1C 7.4(H) (4.0-5.6) % [facility] Comment: MONITORING: In known diabetic patients, hemoglobin A1c targets should be discussed with health care provider. DIAGNOSTIC USE: The [place] Diabetes Association (ADA) and the World Health [...] Supplement 1 Testing performed or reported by [facility], a Service of [facility], [address] [place] [address] Fahad Alejandre MD, Fur Trimmer [facility]# [id number] Blood specimen (specimen) Venous blood / Unknown 11/30/2022 8:14 AM EDT 11/30/2022 9:16 AM EDT us Matthew PUGH LAB BLOOD ORDERABLES Final Re sult [facility] from Last 3 Months or Most Recently Relevant to Health Maintenance Insurance [facility] Care Teams Telecommunications Field Technician Relationship Specialty Start Date End Date Rob Elder MD [address] [place] PCP - General Internal Medicine 07/28/21
--- OUTSIDE RECORDS SUMMARY | 2025-05-24 11:14 | XMS_ITS | Encounter Summary ---
Author Organization [facility] [place], Address [address] [place] [address] Phone Care Team Providers Care Brick Paver Name Role Phone Rob Elder MD Primary Care Provider [phone] Encounter Details Date Type Department Care Team (Late st Contact Info) Description 05/28/2024 Office Communication [facility] [place], [facility] [address] [place] [phone] Willian Araya MD [address] [place] [phone] Social History Tobacco Use Types Packs/Day Years [...] on filedocumented in this encounter Care Teams Brick Paver Relationship Specialty Start Date End Date Rob Elder MD [address] [place], [place] PCP - General Internal Medicine 07/28/21 documented as of this encounter
--- OUTSIDE RECORDS SUMMARY | 2025-05-24 11:14 | XMS_ITS | Encounter Summary ---
Author Organization [facility] [place], Address [address] [place] [address] Phone Care Team Providers Care Wellness Educator Name Role Phone Rob Elder MD Primary Care Provider [phone] Encounter Details Date Type Department Care Team (Late st Contact Info) Description 02/09/2022 Office Communication [facility] [place], [address] [facility] [facility] [place] [phone] Willian Araya MD [address] [place] [phone] Social History Tobacco Use Types Packs/Day Years [...] on filedocumented in this encounter Care Teams Wellness Educator Relationship Specialty Start Date End Date Rob Elder MD [address] [place] PCP - General Internal Medicine 07/28/21 documented as of this encounter
--- OUTSIDE RECORDS SUMMARY | 2025-05-24 11:14 | XMS_ITS | Patient Health Record ---
Author Organization [facility] Address [address] [place] [address] Care Team Providers Care Wet Sander Name Role Phone Min Brooks Primary Care Provider Aleah Gaviria Unavailable [phone] Allergies No Known Allergies Results Component Value [...] Problem Acquired hammer toe of right foot (9961945510879239 ) Other hammer toe(s) (acquired), right foot (M20.41) Active confirmed Problem Acquired hammer toe of left foot (1026747836049651 ) Other hammer toe(s) (acquired), left foot (M20.42) Active confirmed Problem Polyneuropathy due to type 2 diabetes mellitus (390465197) Type 2 diabetes mellitus with diabetic polyneuropathy (E11.42) Active confirmed Vital Signs Blood pressure diastolic 65 mm Hg 01/15/2025 Height 5 ft 7 in in 01/15/2025 Blood pressure systolic 145 mm Hg 01/15/2025 Weight 194 lbs 01/15/2025 BMI 30.38 kg/m2 01/15/2025 Encounters Encounter Location Date Provider Diagnosis [facility] [address] [address] 09/11/2024 Aleah Chavez Type 2 diabetes mellitus with diabetic polyneuropathy E11.42 ; Other hammer toe(s) (acquired), right foot M20.41 ; Other hammer toe(s) (acquired), left foot M20.42 and Tinea unguium B35.1 [facility] [address] 01/15/2025 Aleah Chavez Type 2 diabetes mellitus with diabetic polyneuropathy E11.42 and Tinea unguium B35.1 [facility] [place] [address] [place] [address] 01/15/2025 [facility] [address] [facility] [address] [place] [address] 04/15/2025 Aleah Chavez Assessments Encounter Date Diagnosis [...] Treatment Pending Test Test Name Order Date 06198-[id number] NAIL, 6 OR MORE 03/13/2014 75005-JWTCODC NAIL, 6 OR MORE 06/12/2014 21554-BDKGGGD NAIL, 6 OR MORE 10/08/2014 57379-GLQKNJX NAIL, 6 OR MORE 01/08/2015 65804-QGJEPYD NAIL, 6 OR MORE 05/08/2015 41595-VVIQPVE NAIL, 6 OR MORE 09/01/2015 77105-ULOVTLT NAIL, 6 OR MORE 01/07/2016 61305-UAFBFFE NAIL, 6 OR MORE 05/03/2016 10472-SLLPZEO NAIL, 6 OR MORE 09/06/2016 34989-YQHSNKJ NAIL, 6 OR MORE 01/06/2017 88737-DBGVNNH NAIL, 6 OR MORE 05/12/2017 92116-KXYCDCN NAIL, 6 OR MORE 09/01/2017 34447-VZQKAVF NAIL, 6 OR MORE 04/26/2018 21886-AQDDXUL NAIL, 6 OR MORE 12/21/2017 39954-LVZC SKIN LESIONS, OVER 4 04/26/20 18 50830-ZKNE SKIN LESIONS, OVER 4 08/30/19 19 75469-AQXJ SKIN LESIONS, OVER 4 12/28/19 19 69369-GPTX SKIN LESIONS, OVER 4 03/29/20 19 92944-NZIZ SKIN LESIONS, OVER 4 07/12/20 19 08967-FMFK SKIN LESIONS, OVER 4 12/05/19 20 63721-WHNZ SKIN LESIONS, OVER 4 04/24/20 20 19201-KCPA SKIN LESIONS, OVER 4 08/27/19 21 00798-PEMY SKIN LESIONS, OVER 4 12/25/19 21 09403-NGKF SKIN LESIONS, OVER 4 05/06/20 21 98565-QOQX SKIN LESIONS, OVER 4 09/17/19 22 49626-VRHX SKIN LESIONS, OVER 4 12/22/19 18 03510-GCJZ SKIN LESIONS, OVER 4 09/01/19 18 34424-JYBP SKIN LESIONS, OVER 4 05/12/20 17 19546-CWZD SKIN LESIONS, OVER 4 09/06/19 17 84882-FDTN SKIN LESIONS, OVER 4 01/07/20 17 13221-AIHO SKIN LESIONS, OVER 4 05/03/20 16 41049-LHBN SKIN LESIONS, OVER 4 01/07/20 16 58755-RVIX SKIN LESIONS, OVER 4 09/01/19 16 93907-HIZA SKIN LESIONS, OVER 4 05/08/20 15 74877-GORM SKIN LESIONS, OVER 4 01/09/20 15 38374-XJTU SKIN LESIONS, OVER 4 10/09/19 15 67291-VNUK SKIN LESIONS, OVER 4 06/12/20 14 78317-HGZH SKIN LESIONS, OVER 4 03/13/20 14 Insurance Providers Payer Name Payer Address Payer Phone Subscriber Number Group Number Insured Name Patient Relationship to Insured Coverage Start Date Coverage End Date [employer] [place] Medicare Advantage [address] [facility] [address] [id number] Alf Mooney Self - patient is the [...]
[2025-05-24 11:40] LABS: MANUAL DIFF FLAG NO
[2025-05-24 11:57] LABS: Hematocrit 39.4 % (42.0-52.0); Hemoglobin 13.2 g/dl (14.0-18.0); Imm Gran Abs Auto 0.02 X10*3/uL (0.00-0.03); Imm Gran Pct Auto 0.2 % (0.0-0.4); Lymphocytes Absolute Auto 1.6 X10*3/uL (1.2-4.9); Mean Corpuscular HGB Conc 33.5 g/dl (31.0-36.0); Mean Corpuscular Hemoglobin 30.8 pg (27.0-33.0); Mean Corpuscular Volume 91.8 fL (80.0-98.0); NRBC Abs Auto 0.000 X10*3/uL (0.0-0.012); NRBC Pct Auto 0.0 /100WBC (0.0-0.2); Platelet Count 241 X10*3/uL (160-400); Red Blood Count 4.29 X10*6/uL (4.60-5.80); White Blood Count 8.3 X10*3/uL (4.8-10.8)
== END 2025-05-24 09:58 | disposition home or self-care (01) ==
LOC: HO.10HDL 09:57
PROVIDERS: Visit Provider Physician Assistant
DX: G89.18 Other acute postprocedural pain (principal)
CPT/HCPCS: 36415; 85025; 85652; 86141

== ENCOUNTER 2025-05-31 11:19 | Outpatient (AMB) | payer MEDICARE, SELFPAY ==
--- OUTSIDE RECORDS SUMMARY | 2024-01-26 04:00 | XMS_ITS ---
Author Organization [facility] Address [address] [place] [address] Care Team Providers Care Labor Economics Teacher Name Role Phone Min Brooks Primary Care Provider UnavailAleah Rachel Unavailable [phone] Matt Masters Unavailable [phone] Flores Encounters Encounter Location Date Provider Diagnosis [facility] [address] [place] [address] 01/26/2024 Matt Masters Plan Of Treatment No Information Progress Notes * Alf MCACLL JDOB:[birth year] (79 yo M)Acc No.[id number]:01/26/2024 Progress Note Patient: Juan BROWN Edmond Anoop Provider: Dunia Suero DPM :1945 A ge:78 Y S ex:Male Date:01/26/2024 Address:[address] [place] [phone] Pcp:Min Brooks Subjective: * Chief Complaints: * [...] 01/26/2024 Generated for Jeffrey woodall/Svetlana/Anselmo on: 1 12:52 PM EDT
--- OUTSIDE RECORDS SUMMARY | 2024-01-30 04:30 | XMS_ITS ---
Author Organization [facility] Address [address] [place] [address] Care Team Providers Care Collateral Clerk Name Role Phone Min Brooks Primary Care Provider Aleah Gaviria Unavailable [phone] Matt Masters Unavailable [phone] REASON FOR VISIT Painful nail(s) aggrevated by shoes and causing difficulty standing/walking. Medications Medication SIG (Take, Route, Frequency, Duration) Notes Start Date End Date Status Extra Depth Diabetic Shoes with 3 Pair Custom heat-molded multi-density innersoles for 1 year Dx: Active Encounters Encounter Location Date Provider Diagnosis [facility] [address] [place] [address] 01/30/2024 Matt Masters Tinea unguium B35.1 ; [...] as necessary. Patient chooses, no pharmaceutical tx (30634) Keratoma Treatment Parring or Cutting o f Benign Hyperkeratotic Lesion(s) 81223 ( >4 Lesions) - The Benign hyperkeratotic lesions, as described above were pared, and/or cut utilizing a sterile #15 blade, tissue nippers, and/or dremel Progress Notes * Alf MCCALLDOB:[birth year] (79 yo M)Acc No.[id number]:01/30/2024 Progress Note Patient: Juan BROWN Alf Anoop Provider: Dunia Suero DPM :1945 A ge:78 Y S ex:Male Date:01/30/2024 Address:[address] [place] [address] [place], [id number] Pcp:Min Brooks Subjective: * Chief Complaints: * [...] enies. C ardiovascular: Pacemaker d enies. M LEAD MAINTENANCE TECHNICIAN d enies. W PW d enies. C [...] as necessary. Patient chooses, no pharmaceutical tx (32091). K eratoma Treatment: Parring or Cutting of Benign Hyperkeratotic Lesion(s) 1 1057 ( >4 Lesions) - The Benign hyperkeratotic lesions, as described above were pared, and/or cut utilizing a sterile #15 blade, tissue nippers, and/or dremel. * Procedure Codes: 1 1721 DEBRIDE NAIL, 6 OR MORE, Modifiers: XS , 75943 TRIM SKIN LESIONS, OVER 4, Modifiers: XS * Follow Up: 3 Months * Images: * The named appointment provid er may or may not be the originator of this progress note, and it is not deemed complete until electronically signed by the appointment provider. Sign off status: Pending * Provider: Dunia Suero DPM Date: 0 01/30/2024 Generated for Jeffrey woodall/Svetlana/Anselmo on: 12:53 PM EDT History and Physical Notes * HPI (History [...]
--- OUTSIDE RECORDS SUMMARY | 2024-05-10 04:00 | XMS_ITS ---
Author Organization [facility] Address [address] [place] [address] Care Team Providers Care Medical Sociologist Name Role Phone Min Brooks Primary Care Provider Aleah Gaviria Unavailable [phone] Matt Masters Unavailable [phone] Encounters Encounter Location Date Provider Diagnosis [facility] [address] [place] [address] 05/10/2024 Matt Masters Plan Of Treatment No Information Progress Notes * LEEPARADISE Alf JDOB:[birth year] (79 yo M)Acc No.[id number]:05/10/2024 Progress Note Patient: Alf LANE Provider: Dunia Suero DPM :1945 A ge:78 Y S ex:Male Date:05/10/2024 Address:[address] [place] [phone] Pcp:Min Brooks Subjective: * Chief Complaints: * [...] 1 Generated for Jeffrey woodall/Svetlana/Anselmo on: 1 12:53 PM EDT
--- OUTSIDE RECORDS SUMMARY | 2025-04-23 06:00 | XMS_ITS ---
Author Organization [facility] Address [address] [place] [address] Care Team Providers Care Environmental Program Manager Name Role Phone Min Brooks Primary Care Provider Aleah Gaviria [phone] Encounters Encounter Location Date Provider Diagnosis [facility] [address] [place] [address] 04/23/2025 Aleah Chavez Plan Of Treatment No Information Progress Notes * ARNULFOPARADISE Alf JDOB:[birth year] (79 yo M)Acc No.[id number]:04/23/2025 Progress Note Patient: Juan BROWN Edmond Anoop Provider: Conchis Chavez DPM :1945 A ge:79 Y S ex:Male Date:04/23/2025 Address:[address] [place] [address] Pcp:Min Brooks Subjective: * Chief Complaints: * [...] 04/23/2025 Generated for Printi ng/Fanaeg/eTransmitting on: 1 12:53 PM EDT
--- NOTE | 2025-05-31 11:53 | A.SPINEOV_ITS ---
Intake Visit Reasons: MRI f/u Intake Note: Mr. Frost is here today to F/u on the results to his MRI. Tactical Response Group Officer Required: No Allergies No Known Allergies Allergy (Verified 02/07/25 09:32) Assessment & Plan Assessment & Plan (1) Spinal stenosis, lumbar region with neurogenic claudication: Code(s): M48.062 - Spinal stenosis, lumbar region with neurogenic claudication Category: Medical Plan Dear colleague, On 05/31/2025, I saw for follow-up Alf Frost. He underwent a L4-5 synovial cyst resection in December for predominantly right-sided neurogenic claudication symptoms. He was doing very well but slowly the symptoms returned, where he again develops symptoms after walking or standing which improved after sitting down. Prolonged sitting will give him discomfort. He denies excruciating low back pain. He denies fever. I repeated an MRI to assess the L4-5 spinal canal and to my surprise the report came back as showing abscess anterior to the L3 vertebral body, epidural abscess posterior to L4 and L5 with compression of the thecal sac and diskitis T12-11 and T12-L1. Clinically, this patient is not suffering from an epidural abscess and/or diskitis. Clinical presentation would be severe intractable low back pain and progressive neurological symptoms, which are not present. It is also hard to imagine that all these infectious abnormalities start more than 3 months following a minor procedure. He is diabetic and therefore does have an increased risk of developing infectious processes in general unrelated to the surgery. I explained to the patient that I could send him to the emergency room or to Infectious Disease and that will definitely result in him being admitted and receiving IV antibiotics for a prolonged period of time despite clinically not showing any signs of the MRI results. I am not convinced that this patient is having an infection. We decided to repeat an MRI in the beginning of July. A progression of the abnormalities would recently result in treatment but is stable or improved MRI would make the diagnosis unlikely. He is aware that if he develops severe back pain, fever or neurological deficits that he should call my office or go to the emergency room. Thank you for allowing me take care of your patient. I spent 20 minutes in his consult reviewing imaging and discussing plan of care. Do not hesitate to call me with any questions or concerns. Dakotah Torres MD, PhD Spine Fellowship Trained Neurosurgeon Director, [facility] Orders: Orders MR lumbar spine wo/w con 4 Weeks M48.062 - Spinal stenosis, lumbar region with neurogenic claudication Coding Level of Care Code Est Pt Level 3 (54411) Diagnoses Spinal stenosis, lumbar region with neurogenic claudication M48.062
--- OUTSIDE RECORDS SUMMARY | 2025-05-31 12:52 | XMS_ITS | Clinical Summary ---
Author Organization [facility], Address [address] [place] [address] Phone Care Team Providers Care Sheet Metal Roofer Name Role Phone Rob Elder MD Primary Care Provider [phone] Allergies Active Allergy Reactions Criticality Noted Date [...] and 5 mg in the evening. Active [place]-3 Fatty Acids (Fish Oil) 1000 MG capsule [...] AM EDT) Hemoglobin A1C 7.4(H) (4.0-5.6) % [facility] Comment: MONITORING: In known diabetic patients, hemoglobin A1c targets should be discussed with health care provider. DIAGNOSTIC USE: The [place] Diabetes Association (ADA) and the World Health [...] Supplement 1 Testing performed or reported by [facility], a Service of [facility], [address] [place] [address] Fahad Alejandre MD, Direct Sales Representative [facility]# [id number] Blood specimen (specimen) Venous blood / Unknown 11/30/2022 8:14 AM EDT 11/30/2022 9:16 AM EDT us Matthew PUGH LAB BLOOD ORDERABLES Final Re sult [facility] from Last 3 Months or Most Recently Relevant to Health Maintenance Insurance [facility] Care Teams Sheet Metal Roofer Relationship Specialty Start Date End Date Rob Elder MD [address] [place] PCP - General Internal Medicine 07/28/21
--- OUTSIDE RECORDS SUMMARY | 2025-05-31 12:53 | XMS_ITS | Patient Health Record ---
Author Organization [facility] Address [address] [place] [address] Care Team Providers Care Post Acute Care Nurse Name Role Phone Min Brooks Primary Care Provider Aleah Gaviria Unavailable [phone] Allergies No Known Allergies Results Component Value [...] Problem Acquired hammer toe of right foot (3814222459434081 ) Other hammer toe(s) (acquired), right foot (M20.41) Active confirmed Problem Acquired hammer toe of left foot (4572865109347285 ) Other hammer toe(s) (acquired), left foot (M20.42) Active confirmed Problem Polyneuropathy due to type 2 diabetes mellitus (426243150) Type 2 diabetes mellitus with diabetic polyneuropathy (E11.42) Active confirmed Vital Signs Blood pressure diastolic 65 mm Hg 01/15/2025 Height 5 ft 7 in in 01/15/2025 Blood pressure systolic 145 mm Hg 01/15/2025 Weight 194 lbs 01/15/2025 BMI 30.38 kg/m2 01/15/2025 Encounters Encounter Location Date Provider Diagnosis [facility] [address] [address] 09/11/2024 Aleah Chavez Type 2 diabetes mellitus with diabetic polyneuropathy E11.42 ; Other hammer toe(s) (acquired), right foot M20.41 ; Other hammer toe(s) (acquired), left foot M20.42 and T[facility] unguium [facility] [facility] [address] 01/15/2025 Aleah Chavez Type 2 diabetes mellitus with diabetic polyneuropathy E11.42 and Tinea unguium B35.1 [facility] [place] [address] [place] [address] 01/15/2025 [facility] [address] [facility] [address] [place] [address] 04/15/2025 Aleah Chavez Assessments Encounter Date Diagnosis [...] Treatment Pending Test Test Name Order Date 54312-PDGOHUH NAIL, 6 OR MORE 03/13/2014 05775-WXIRXFM NAIL, 6 OR MORE 06/12/2014 59756-FOQNXAH NAIL, 6 OR MORE 10/08/2014 07838-VHSGTXU NAIL, 6 OR MORE 01/08/2015 62708-HBTVZZV NAIL, 6 OR MORE 05/08/2015 43320-GWVGDZD NAIL, 6 OR MORE 09/01/2015 11141-LSULHJL NAIL, 6 OR MORE 01/07/2016 49313-VCKGZAI NAIL, 6 OR MORE 05/03/2016 22024-PBGMUPZ NAIL, 6 OR MORE 09/06/2016 68214-YAZNGQA NAIL, 6 OR MORE 01/06/2017 58326-JSNFTHR NAIL, 6 OR MORE 05/12/2017 21648-DLHOYFK NAIL, 6 OR MORE 09/01/2017 94441-ZHRLYXX NAIL, 6 OR MORE 04/26/2018 71514-FUHAFZQ NAIL, 6 OR MORE 12/21/2017 67543-AODH SKIN LESIONS, OVER 4 04/26/20 18 61251-HGQH SKIN LESIONS, OVER 4 08/30/19 19 28867-AKBW SKIN LESIONS, OVER 4 12/28/19 19 75116-HEKI SKIN LESIONS, OVER 4 03/29/20 19 81854-TZHH SKIN LESIONS, OVER 4 07/12/20 19 59348-CZIC SKIN LESIONS, OVER 4 12/05/19 20 34804-NXZH SKIN LESIONS, OVER 4 04/24/20 20 55585-TLRI SKIN LESIONS, OVER 4 08/27/19 21 69415-NUBZ SKIN LESIONS, OVER 4 12/25/19 21 49355-RTHH SKIN LESIONS, OVER 4 05/06/20 21 46303-MVMI SKIN LESIONS, OVER 4 09/17/19 22 68941-FZGL SKIN LESIONS, OVER 4 12/22/19 18 49109-MHML SKIN LESIONS, OVER 4 09/01/19 18 57680-OFZZ SKIN LESIONS, OVER 4 05/12/20 17 05398-LHIF SKIN LESIONS, OVER 4 09/06/19 17 43532-QLXK SKIN LESIONS, OVER 4 01/07/20 17 51145-RSEU SKIN LESIONS, OVER 4 05/03/20 16 52158-ANCU SKIN LESIONS, OVER 4 01/07/20 16 86999-NJYG SKIN LESIONS, OVER 4 09/01/19 16 95090-HQED SKIN LESIONS, OVER 4 05/08/20 15 41909-XBDU SKIN LESIONS, OVER 4 01/09/20 15 09758-XQKN SKIN LESIONS, OVER 4 10/09/19 15 68024-SUDX SKIN LESIONS, OVER 4 06/12/20 14 43361-ZRQZ SKIN LESIONS, OVER 4 03/13/20 14 Insurance Providers Payer Name Payer Address Payer Phone Subscriber Number Group Number Insured Name Patient Relationship to Insured Coverage Start Date Coverage End Date [employer] [place] Medicare [employer]vantage [address] [facility] [address] [id number] Alf Mooney Self - patient is the [...]
== END 2025-05-31 12:11 | disposition home or self-care (01) ==
LOC: HO.HNS 11:19
PROVIDERS: Visit Provider Neurological Surgery
DX: M48.062 Spinal stenosis, lumbar region with neurogenic claudication (principal)
CPT/HCPCS: 99213

== ENCOUNTER → 2025-05-31 11:19 | Outpatient (BNVA) | payer MEDICARE, SELFPAY | PROVIDERS: Visit Provider Neurological Surgery | DX: M48.062 Spinal stenosis, lumbar region with neurogenic claudication (principal) | CPT/HCPCS: 99212 ==

== ENCOUNTER → 2025-07-19 10:52 | Outpatient (BNV) | payer MEDICARE, SELFPAY | PROVIDERS: Visit Provider Radiology Diagnostic Radiology | DX: M48.062 Spinal stenosis, lumbar region with neurogenic claudication (principal); M99.63 Osseous and subluxation stenosis of intervertebral foramina of lumbar region | CPT/HCPCS: 72158 ==

== ENCOUNTER 2025-07-19 10:56 | Outpatient (REF) | payer MEDICARE, SELFPAY ==
--- OUTSIDE RECORDS SUMMARY | 2024-01-26 03:00 | XMS_ITS ---
Author Organization [facility] Address [address] [place] [address] Care Team Providers Care Clinical Leader Name Role Phone Min Brooks Primary Care Provider UnavailAleah Rachel Unavailable [phone] Matt Masters Unavailable [phone] Flores Encounters Encounter Location Date Provider Diagnosis [facility] [address] [place] [address] 01/26/2024 Matt Masters Plan Of Treatment No Information Progress Notes * STEFANY Alf JDOB:[birth year] (79 yo M)Acc No.[id number]:01/26/2024 Progress Note Patient: Juan BROWN Edmond Anoop Provider: Dunia Suero DPM :1945 A ge:78 Y S ex:Male Date:01/26/2024 Address:[address] [place] [phone] Pcp:Min Brooks Subjective: * Chief Complaints: * [address] Flores. * Medical History: Objective: * Vitals: Assessment: Plan: * Treatment: * Images: * The named appointment provid er may or may not be the originator of this progress note, and it is not deemed complete until electronically signed by the appointment provider. Sign off status: Pending * Provider: Dunia Suero DPM Date: 0 01/26/2024 Generated for Jeffrey woodall/Svetlana/Anselmo on: 1 09/19/2024 12:51 PM EST
--- OUTSIDE RECORDS SUMMARY | 2024-01-30 03:30 | XMS_ITS ---
Author Organization [facility] Address [address] [place] [address] Care Team Providers Care Project Management Director Name Role Phone Min Brooks Primary Care Provider Aleah Gaviria Unavailable [phone] Matt Masters Unavailable [phone] REASON FOR VISIT Painful nail(s) aggrevated by shoes and causing difficulty standing/walking. Medications Medication SIG (Take, Route, Frequency, Duration) Notes Start Date End Date Status Extra Depth Diabetic Shoes with 3 Pair Custom heat-molded multi-density innersoles for 1 year Dx: Active Encounters Encounter Location Date Provider Diagnosis [facility] [address] [place] [address] 01/30/2024 Matt Masters Tinea unguium B35.1 ; Type 2 diabetes mellitus with diabetic polyneuropathy E11.42 ; Pain in right toe(s) M79.674 ; Pain in left toe(s) M79.675 ; Other hammer toe(s) (acquired), left foot M20.42 ; Other hammer toe(s) (acquired), right foot M20.41 and Localized edema R60.0 Assessments Encounter Date Diagnosis (ICD Code) Assessment Notes Treatment Notes Treatment Clinical Notes Section Notes 01/30/2024 Tinea unguium (ICD-10 - B35.1) 01/30/2024 Type 2 diabetes mellitus with diabetic polyneuropathy (ICD-10 - E11.42) 01/30/2024 Pain in right toe(s) (ICD-10 - M79.674) 01/30/2024 Pain in left toe(s) (ICD-10 - M79.675) 01/30/2024 Other hammer toe(s) (acquired), left foot (ICD-10 - M20.42) 01/30/2024 Other hammer toe(s) (acquired), right foot (ICD-10 - M20.41) 01/30/2024 Localized edema (ICD-10 - R60.0) Plan Of Treatment Medication Medication Name Sig Start Date Stop Date Notes Extra Depth Diabetic Shoes w ith 3 Pair Custom heat-molded multi-density innersoles for 1 year Dx: Next Appt Details Follow Up: 3 Months, Reason: Procedure Notes * Category Sub-Category Detail Notes Debride Nail 6-10 Nail debridement Nail debridem ent performed extensively to reduce/remove overall nail length and girth, subungual debris, and necrotic tissue, by manual and electrical means with use of a nail nipper and/or dremel, to more viable healthy nail plate or bed tissue 6-10. Silver nitrate used for any petechial bleeding as necessary. Patient chooses, no pharmaceutical tx (91154) Keratoma Treatment Parring or Cutting o f Benign Hyperkeratotic Lesion(s) 14731 ( >4 Lesions) - The Benign hyperkeratotic lesions, as described above were pared, and/or cut utilizing a sterile #15 blade, tissue nippers, and/or dremel Progress Notes * Alf MCCALLDOB:[birth year] (79 yo M)Acc No.[id number]:01/30/2024 Progress Note Patient: Juan BROWN Alf Anoop Provider: Dunia Suero DPM :1945 A ge:78 Y S ex:Male Date:01/30/2024 Address:[address] [place] [address] [id number] Pcp:Min Brooks Subjective: * Chief Complaints: * 1 . Painful nail(s) aggrevated by shoes and causing difficulty standing/walking.. * HPI: P ainful Nails: Pt States Last PCP Visit: D ate: 0 08/01/2023 T oe pain: Nature: t enderness, overlapping left 2nd toe. Location: 2 nd toe, 3rd toe, Left foot. Duration: s everal months. Onset/Cause: g radual. Course: p rogressive. Aggravated by: s hoes, any pressure. Severity/Quality: m ild, moderate. * ROS: G eneral/Constitutional: Nausea d enies. V omiting d enies. H morales Thirst d enies. L oss appetite d enies. C hills d enies. F atigue d enies.?Fever d enies. N ight Sweats d enies. U nexplained weight loss d enies. O phthalmologic: Blurred vision d enies. R ed eye d enies. ? H EENTM: Dentures d enies. D izziness d enies. G lasses/contacts a dmits. R etinopathy d enies. B lurred/double vision d enies. T MJ?denies. D ischarge/drainage d enies. I mplants d enies. H damián of hearing denies. D ifficulty chewing/swallowing/speaking d enies. N ose bleeds d enies.?Sore mouth d enies. S wollen glands d enies. R espiratory: On Oxygen d enies. P neumonia/pleurisy d enies.?Bronchitis d enies. E mphysema d enies. C oughing d enies. C ough blood?denies. S hortness of breath d enies. W heezing d enies. C ardiovascular: Pacemaker d enies. M INTELLIGENCE AGENT d enies. W PW d enies. C HF d enies. H eart attack d enies. S eptal defect d enies. R apid beat d enies. C hest pain d enies. A trial Fib. d enies. M urmur/Palpitations d enies. G astrointestinal: Hemorrhoids d enies. S tomach/Abdominal pain d enies. D ark blood stool d enies. I rritable bowel d enies. C onstipation d enies. D iarrhea d enies. V omiting d enies. H ematology: Swelling a dmits. B ruising d enies. B leeding problem d enies. G enitourinary: Blood urine d enies. F requent/Painfu/urination/bladder control d enies. K idney stones d enies. I nfection (UTI) d enies. N ephropathy d enies. M usculoskeletal: Hammertoes d enies. B unions d enies. S coliosis/kyphosis d enies. M uscle cramps / walking d enies. G eneralized aches and pains?denies. W eakness d enies. I nteg.: Flores d enies. S cars d enies. C orns/calluses?admits. I ngrown nails d enies. P ainful nails d enies. R ashes d enies. N eurologic: Difficulty sleeping d enies. B ipolar d enies. B rain disorder d enies. B alance trouble d enies. C onfusion d enies. F ainting/blackouts d enies. H eadache d enies. T remors d enies. * Medical History: Objective: * Vitals: * Examination: N eurological: SENSORY: E xam demonstrates, reduced vibration lower extremity, B/L, at forefoot, 5.07 monofilament test performed at plantar aspects of 5 varied sites per foot shows sensation, reduced , B/L. BABINSKI REFLEX: a bsent. G eneral Examination: GENERAL APPEARANCE: p leasant, alert, well nourished, well developed, well hydrated, with good attention to hygene/body habitus, and in no acute distress. ORIENTED: p erson,place, and time. FOOT EXAM: L ower Extremity Neurological Exam performed:?Yes V isual exam of foot performed: Y es D ate 0 04/13/2023 S ensory testing performed: s ensations diminished P edal pulse taking performed: 1 + V ascular: DP PULSES (B): 1/4, B/L. PT PULSES (B): 1/4, B/L. CAPILLARY FILL TIME: 3 secs. per digit, B/L. TROPHIC CONDITION-TEXTURE/ELASTICITY/TURGOR/HAIR GROWTH (B):?normal, B/L. TEMPERTURE GRADIENT (C): w arm to cool, proximal to distal, B/L. PIGMENTATION: n ormal, B/L. EDEMA (C): 1/4, B/L, Ankle(s), Leg(s). TELANGECTASIA: a bsent. VARICOSITIES: a bsent. N ails: NAILS are: e longated, overgrown, dystrophic, greater than 3mm thick, discolored and friable with crumbly malodorous subungual debris, with dull to no pain on palpation due to neuropathy, 1-5 B/L. D ermatologic: SKIN FINDINGS: Skin exam reveals keratotic lesion(s) located at, Medial plantar, TA, T5, SUB MTH (s), 1, 5, B/L . O rthopedic: MUSCLE STRENGTH: 5 /5 all groups in a symmetrical fashion , B/L. GAIT ABNORMALITY: p ronated, abducted, B/L. DIGITAL DEFORMITIES: Digital contracture, PIPJ, 4-5 B/L, incompl-reducable to push-up test, medial subluxation left 2/3 rd toes. O phthalmology Referral: DIABETES EYE EXAM D iabetic Retinopathy Screening: Y es F indings of Diabetic Eye Exam: n o retinopathy Assessment: * Assessment: 1. T inea unguium - B35.1 (Primary) 2 . T ype 2 diabetes mellitus with diabetic polyneuropathy - E11.42 3 . P ain in right toe(s) - M79.674 ?4. P ain in left toe(s) - M79.675 5 . O ther hammer toe(s) (acquired), left foot - M20.42 6 . O ther hammer toe(s) (acquired), right foot - M20.41 ? 7 . L ocalized edema - R60.0 Plan: * Treatment: * Procedures: D ebride Nail 6-10: Nail debridement N ail debridement performed extensively to reduce/remove overall nail length and girth, subungual debris, and necrotic tissue, by manual and electrical means with use of a nail nipper and/or dremel, to more viable healthy nail plate or bed tissue 6-10. Silver nitrate used for any petechial bleeding as necessary. Patient chooses, no pharmaceutical tx (73845). K eratoma Treatment: Parring or Cutting of Benign Hyperkeratotic Lesion(s) 1 1057 ( >4 Lesions) - The Benign hyperkeratotic lesions, as described above were pared, and/or cut utilizing a sterile #15 blade, tissue nippers, and/or dremel. * Procedure Codes: 1 1721 DEBRIDE NAIL, 6 OR MORE, Modifiers: XS , 61688 TRIM SKIN LESIONS, OVER 4, Modifiers: XS * Follow Up: 3 Months * Images: * The named appointment provid er may or may not be the originator of this progress note, and it is not deemed complete until electronically signed by the appointment provider. Sign off status: Pending * Provider: Dunia Sueor DPM Date: 0 01/30/2024 Generated for Jeffrey woodall/Svetlana/Anselmo on: 09/19/2024 12:51 PM EST History and Physical Notes * HPI (History of Present Illness) Category Sub-Category Detail Notes Category Not es Toe pain Nature: tenderness, overlapping left 2nd toe Location: 2nd toe, 3rd toe, Le ft foot Duration: several months Onset/Cause: gradual Course: progressive Aggravated by: shoes, any pressure Severity/Quality: mild, moderate Painful Nails Pt States Last PCP Visit: Date:: 08/01/2023 Examination Category Sub-Category Detail Notes Category Not es Neurological SENSORY: Exam demonstrate s, reduced vibration lower extremity, B/L, at forefoot, 5.07 monofilament test performed at plantar aspects of 5 varied sites per foot shows sensation, reduced , B/L BABINSKI REFLEX: absent Dermatologic SKIN FINDINGS: Skin exam reveal s keratotic lesion(s) located at, Medial plantar, TA, T5, SUB MTH (s), 1, 5, B/L Orthopedic GAIT ABNORMALITY: pronated, abducted, B/L DIGITAL DEFORMITIES: Digital contracture , PIPJ, 4-5 B/L, incompl-reducable to push-up test, medial subluxation left 2/3 rd toes MUSCLE STRENGTH: 5/5 all groups in a symmetrical fashion , B/L General Examination GENERAL APPEARANCE: pleasant , alert, well nourished, well developed, well hydrated, with good attention to hygene/body habitus, and in no acute distress FOOT EXAM: Lower Extremity Neurological Exa m performed:: Yes Visual exam of foot performed:: Yes Date: 04/13/2023 Sensory testing performed:: sensations d iminished Pedal pulse taking performed:: 1+ ORIENTED: person,place, and ti me Ophthalmology Referral DIABETES EYE EXAM Diabetic Retinopa thy Screening:: Yes Findings of Diabetic Eye Exam:: no retin opathy Vascular DP PULSES (B): 1/4, B/L PT PULSES (B): 1/4, B/L CAPILLARY FILL TIME: 3 secs. per digit, B/L TEMPERTURE GRADIENT (C): warm to cool, p roximal to distal, B/L TROPHIC CONDITION-TEXTURE/ELASTICITY/TURGOR/HAIR GROWTH (B): normal, B/L EDEMA (C): 1/4, B/L, Ankle(s), Leg(s) TELANGECTASIA: absent VARICOSITIES: absent PIGMENTATION: normal, B/L Nails NAILS are: elongated, overg rown, dystrophic, greater than 3mm thick, discolored and friable with crumbly malodorous subungual debris, with dull to no pain on palpation due to neuropathy, 1-5 B/L
--- OUTSIDE RECORDS SUMMARY | 2024-05-10 03:00 | XMS_ITS ---
Author Organization [facility] Address [address] [place] [address] Care Team Providers Care Collection Development Librarian Name Role Phone Min Brooks Primary Care Provider Aleah Gaviria Unavailable [phone] Matt Masters Unavailable [phone] Encounters Encounter Location Date Provider Diagnosis [facility] [address] [place] [address] 05/10/2024 Matt Masters Plan Of Treatment No Information Progress Notes * STEFANY Alf JDOB:[birth year] (79 yo M)Acc No.[id number]:05/10/2024 Progress Note Patient: Alf LANE Provider: Dunia Suero DPM :1945 A ge:78 Y S ex:Male Date:05/10/2024 Address:[address] [place] [address] Pcp:Min Brooks Subjective: * Chief Complaints: * * Medical History: Objective: * Vitals: Assessment: Plan: * Treatment: * Images: * The named appointment provid er may or may not be the originator of this progress note, and it is not deemed complete until electronically signed by the appointment provider. Sign off status: Pending * Provider: Dunia Suero DPM Date: 1 Generated for Jeffrey woodall/Svetlana/Anselmo on: 1 09/19/2024 12:52 PM EST
--- OUTSIDE RECORDS SUMMARY | 2025-04-23 05:00 | XMS_ITS ---
Author Organization [facility] Address [address] [place] [address] Care Team Providers Care Grass Farm Laborer Name Role Phone Min Brooks Primary Care Provider Aleah Gaviria [phone] Encounters Encounter Location Date Provider Diagnosis [facility] [address] [place] [address] 04/23/2025 Aleah Chavez Plan Of Treatment No Information Progress Notes * OPALPARADISE Alf JDOB:[birth year] (79 yo M)Acc No.[id number]:04/23/2025 Progress Note Patient: Juan BROWN Edmond Anoop Provider: Conchis Chavez DPM :1945 A ge:79 Y S ex:Male Date:04/23/2025 Address:[address] [place] [address] Pcp:Min Brooks Subjective: * Chief Complaints: * * Medical History: Objective: * Vitals: Assessment: Plan: * Treatment: * Images: * The named appointment provid er may or may not be the originator of this progress note, and it is not deemed complete until electronically signed by the appointment provider. Sign off status: Pending * Provider: Conchis Chavez DPM Date: 0 04/23/2025 Generated for Printi ng/Fanaeg/eTransmitting on: 1 09/19/2024 12:52 PM EST
--- NOTE | ~2025-07-19 | MR_ITS ---
EXAM: MRI lumbar spine without and with IV contrast TECHNIQUE: Multiplanar multisequence imaging was performed through the lumbar spine without and with IV contrast. INDICATION: M48.062 - Spinal stenosis, lumbar region with neurogenic claudication, follow-up CONTRAST: 9 mL Gadavist PRIOR: 05/22/25 MRI an x-ray from 05/01/2025 FINDINGS: 5 non-rib bearing lumbar segments are present. Again seen is replacement of marrow signal in the anterior left superior endplate of L3 with decreased signal on T1 imaging, increased signal on fluid sensitive sequences with concordant enhancement. There is a large osteophyte extending anterolaterally from this region. There is edema and mild enhancement of the deep portion of the left psoas muscle just inferior to the osteophyte, mildly decreased since the prior. Edema and enhancement of the soft tissues peripheral to the lower L4 and mid to lower L5 vertebral bodies are decreased compared to the prior. L3-4 demonstrate Modic 2 signal in the endplates. There is mixed Modic 1-2 signal at L4-5. There is Modic 2 signal and minimal faint Modic 1 signal at L5-S1. Again seen are postsurgical changes in the soft tissues dorsal to L5 with scar, edema, and mild enhancement. Again seen is mild edema and hyperenhancement of the anterior epidural fat between L3-4 and L5-S1 posteriorly displacing thecal sac resulting in severe spinal stenosis.. The termination of conus medullaris is within normal limits at the level of L1-2. T12-L1: There is stable moderate disc space narrowing with fluid signal and hyperenhancement centrally no destructive changes are adjacent marrow signal changes are present. There is a stable Schmorl's node involving anterior superior L1. L1-L2: There is no disc bulge, herniation, spinal stenosis, or foraminal narrowing. Mild to moderate facet arthropathy is present. L2-L3: There is disc desiccation and mild loss disc height and circumferential broad-based disc bulge not causing spinal stenosis. There is mild facet arthropathy. There is no foraminal narrowing. L3-L4: There is grade 1 anterolisthesis, loss disc height, disc desiccation, circumferential broad-based disc bulge, and endplate osteophyte resulting in severe spinal stenosis. There is ligament flavum thickening and zzbo-vn-lpwdbysw facet arthropathy. There is moderate right and mild left foraminal narrowing. Similar to the prior. L4-L5: Right hemilaminectomy. There is mild loss of disc height and circumferential broad-based disc bulge with endplate osteophytes. There is ligament flavum thickening and mild to moderate facet arthropathy with trace fluid in the facet joints with moderate to severe spinal stenosis and lqte-ja-ojjbbici foraminal narrowing. No change. L5-S1: There is mild loss disc height and disc desiccation with circumferential broad-based disc bulge with moderate facet arthropathy. There is prominent epidural fat indenting thecal sac on the left side encroaching on S1 nerve roots in the subarticular zones. There is severe right and mild left foraminal narrowing, unchanged. MR/MR lumbar spine wo/w con IMPRESSION: Again seen are posterior changes related to right hemilaminectomy at L4-5. Again seen is hyperenhancement in the central disc at T12-L1 without adjacent endplate changes, replacement of marrow signal in the anterior right aspect of the superior L3 endplate with concordant enhancement. Hyperenhancement of the soft tissues adjacent left L3 and peripheral to L4-L5 appears mildly decreased and remains concerning for possible infection. Marrow replacement at L3 could also represent osteomyelitis, marrow edema, or a neoplastic process. Hypertrophic anterior epidural fat with edema and hyperenhancement dorsal to the L4 and L5 vertebral bodies resulting in severe spinal stenosis appears similar to the prior examination and could be related to fat necrosis and/or infection. L3-L4: There is severe spinal stenosis and moderate right foraminal narrowing. Similar to the prior. L4-L5: Right hemilaminectomy. There is moderate to severe spinal stenosis and cusi-zz-pkuxfwjm foraminal narrowing. No change. L5-S1: There is prominent epidural fat indenting thecal sac on the left side and encroaching on S1 nerve roots in the subarticular zones of uncertain significance. There is severe right foraminal narrowing, unchanged. Electronically signed by: Armando Magaña MD 07/19/2025 12:44 PM EST
--- OUTSIDE RECORDS SUMMARY | 2025-07-19 12:52 | XMS_ITS | Clinical Summary ---
Author Organization [facility], Address [address] [facility] [address] [place] [address] Phone Care Team Providers Care Oracle Fusion Developer Name Role Phone Rob Elder MD Primary Care Provider [phone] Allergies Active Allergy Reactions Criticality Noted Date [...] and 5 mg in the evening. Active [place]-3 Fatty Acids (Fish Oil) 1000 MG capsule [...] EDT) Hemoglobin A1C 7.4(H) (4.0-5.6) % [facility] Comment: MONITORING: In known diabetic patients, hemoglobin A1c targets should be discussed with health care provider. DIAGNOSTIC USE: The [place] Diabetes Association (ADA) and the World Health [...] Supplement 1 Testing performed or reported by [facility], a Service of [facility], [address] [place] [address] Fahad Alejandre MD, Carbon Printer [facility]# [id number] Blood specimen (specimen) Venous blood / Unknown 11/30/2022 8:14 AM EDT 11/30/2022 9:16 AM EDT us Matthew PUGH LAB BLOOD ORDERABLES Final Re sult [facility] from Last 3 Months or Most Recently Relevant to Health Maintenance Insurance [facility] Care Teams Oracle Fusion Developer Relationship Specialty Start Date End Date Rob Elder MD [address] [place] PCP - General Internal Medicine 07/28/21
--- OUTSIDE RECORDS SUMMARY | 2025-07-19 12:52 | XMS_ITS | Patient Health Record ---
Author Organization [facility] Address [address] [place] [address] Care Team Providers Care Route Relief Driver Name Role Phone Min Brooks Primary Care Provider Aleah Gaviria Unavailable [phone] Allergies No Known Allergies Results Component Value [...] Problem Acquired hammer toe of right foot (6187676175080201 ) Other hammer toe(s) (acquired), right foot (M20.41) Active confirmed Problem Acquired hammer toe of left foot (5156161579644029 ) Other hammer toe(s) (acquired), left foot (M20.42) Active confirmed Problem Polyneuropathy due to type 2 diabetes mellitus (326598302) Type 2 diabetes mellitus with diabetic polyneuropathy (E11.42) Active confirmed Vital Signs Blood pressure diastolic 65 mm Hg 01/15/2025 Height 5 ft 7 in in 01/15/2025 Blood pressure systolic 145 mm Hg 01/15/2025 Weight 194 lbs 01/15/2025 BMI 30.38 kg/m2 01/15/2025 Encounters Encounter Location Date Provider Diagnosis [facility] [address] [address] 09/11/2024 Aleah Chavez Type 2 diabetes mellitus with diabetic polyneuropathy E11.42 ; Other hammer toe(s) (acquired), right foot M20.41 ; Other hammer toe(s) (acquired), left foot M20.42 and Tinea unguium B35.1 [facility] [address] 01/15/2025 Aleah Chavez Type 2 diabetes mellitus with diabetic polyneuropathy E11.42 and Tinea unguium B35.1 [facility] [place] [address] [place] [address] 01/15/2025 [facility] [address] [address] [place] [address] 04/15/2025 Aleah Chavez Assessments Encounter Date Diagnosis [...] Treatment Pending Test Test Name Order Date 69167-WSBSVPL NAIL, 6 OR MORE 03/13/2014 49711-SARNRWS NAIL, 6 OR MORE 06/12/2014 94450-IVDAVSQ NAIL, 6 OR MORE 10/08/2014 94941-RIAXHNV NAIL, 6 OR MORE 01/08/2015 93872-DGDUJUK NAIL, 6 OR MORE 05/08/2015 98945-ZVNYIHA NAIL, 6 OR MORE 09/01/2015 05512-UWMBOAC NAIL, 6 OR MORE 01/07/2016 09482-XNJQMDM NAIL, 6 OR MORE 05/03/2016 77204-HJSBDCA NAIL, 6 OR MORE 09/06/2016 70933-CNYZDXI NAIL, 6 OR MORE 01/06/2017 61595-ZEQDYPQ NAIL, 6 OR MORE 05/12/2017 78753-IHLQLXJ NAIL, 6 OR MORE 09/01/2017 74350-SQGVSOD NAIL, 6 OR MORE 04/26/2018 22522-ALWBBBI NAIL, 6 OR MORE 12/21/2017 14055-TWPR SKIN LESIONS, OVER 4 04/26/20 18 40426-VZBL SKIN LESIONS, OVER 4 08/30/19 19 69906-LACR SKIN LESIONS, OVER 4 12/28/19 19 67759-UXES SKIN LESIONS, OVER 4 03/29/20 19 39636-QBCC SKIN LESIONS, OVER 4 07/12/20 19 87258-DCXL SKIN LESIONS, OVER 4 12/05/19 20 50067-CPZR SKIN LESIONS, OVER 4 04/24/20 20 30010-YXCT SKIN LESIONS, OVER 4 08/27/19 21 31489-FWPL SKIN LESIONS, OVER 4 12/25/19 21 95914-PDPC SKIN LESIONS, OVER 4 05/06/20 21 14019-ILRT SKIN LESIONS, OVER 4 09/17/19 22 52488-BQDG SKIN LESIONS, OVER 4 12/22/19 18 24002-CWLE SKIN LESIONS, OVER 4 09/01/19 18 42270-KJYJ SKIN LESIONS, OVER 4 05/12/20 17 96298-JIPO SKIN LESIONS, OVER 4 09/06/19 17 72448-LDNN SKIN LESIONS, OVER 4 01/07/20 17 70920-MFSY SKIN LESIONS, OVER 4 05/03/20 16 70653-OFMH SKIN LESIONS, OVER 4 01/07/20 16 36650-BMXC SKIN LESIONS, OVER 4 09/01/19 16 86975-CCPK SKIN LESIONS, OVER 4 05/08/20 15 34949-RDQS SKIN LESIONS, OVER 4 01/09/20 15 01399-CVKK SKIN LESIONS, OVER 4 10/09/19 15 74339-WIFB SKIN LESIONS, OVER 4 06/12/20 14 88737-RMEO SKIN LESIONS, OVER 4 03/13/20 14 Insurance Providers Payer Name Payer Address Payer Phone Subscriber Number Group Number Insured Name Patient Relationship to Insured Coverage Start Date Coverage End Date [employer] [place] Medicare Advantage [address] [facility] [address] [id number] Alf Mooney Self - patient is the [...]
== END 2025-07-19 10:57 | disposition home or self-care (01) ==
LOC: HO.MRI 10:56
PROVIDERS: Visit Provider Neurological Surgery
DX: M48.062 Spinal stenosis, lumbar region with neurogenic claudication (principal)
CPT/HCPCS: 72158; A9585